=== PATIENT | male | born 1945 | race Caucasian/White ===

== ENCOUNTER → 2016-07-28 | Outpatient (REF) | payer MEDICARE, OTHER ==
[~2016-07-28] MED LIST: /PRAV20TA; /WARF5TA; ACET65TA; ACTO45TA6 PO; ALPH0.156; ASPI1TAB PO; BRIM1OPD; COZA100T; HYDR25TA6; KEFL500C; LATA5OPD OD; LISI-538 PO; METF500T PO; ONGLYZA; PERC5TAB8; PERC7.5T8; PRAV10TA PO; TRAVATAN; remicade IV
[2016-07-28 11:04] LABS: MEAN CORPUSCULAR HEMOGLOBIN 31.3 pg (27.0-33.0); MEAN CORPUSCULAR HGB CONC 33.5 g/dl (32.0-36.5); MEAN CORPUSCULAR VOLUME 93.6 fl (80.0-96.0); RED CELL DISTRIBUTION WIDTH 12.6 % (11.5-14.5); WHITE BLOOD COUNT 9.1 K/mm3 (4.0-10.0)
[2016-07-28 11:29] LABS: ALBUMIN 3.8 GM/DL (3.2-5.2); ALKALINE PHOSPHATASE 65 U/L (45-117); ALT/SGPT 24 U/L (12-78); ANION GAP 8 MEQ/L (8-16); AST/SGOT 16 U/L (15-37); BILIRUBIN,TOTAL 0.6 MG/DL (0.2-1.0); BLOOD UREA NITROGEN 17 MG/DL (7-18); CALCIUM LEVEL 9.1 MG/DL (8.8-10.2); CARBON DIOXIDE LEVEL 29 MEQ/L (21-32); CHLORIDE LEVEL 100 MEQ/L (98-107); CHOLESTEROL LEVEL 178 MG/DL (<200); CREATININE FOR GFR 1.09 MG/DL (0.70-1.30); GLOMERULAR FILTRATION RATE > 60.0 (>49); GLUCOSE, FASTING 133 MG/DL (80-110); POTASSIUM SERUM 4.3 MEQ/L (3.5-5.1); SODIUM LEVEL 137 MEQ/L (136-145); TOTAL PROTEIN 7.6 GM/DL (6.4-8.2); TRIGLYCERIDES LEVEL 99 MG/DL (<150)
== END ==
LOC: M SFHCLERA 09:22
PROVIDERS: ATTEND Family Medicine
DX: E11.9 Type 2 diabetes mellitus without complications (principal)

== ENCOUNTER → 2016-08-11 | Outpatient (REF) | payer MEDICARE, OTHER | LOC: M SFHCLERA 08:53 | PROVIDERS: ATTEND Family Medicine | DX: M10.9 Gout, unspecified (principal) | CPT/HCPCS: 84550; G0463 ==

== ENCOUNTER → 2016-10-16 | Outpatient (CLI) | payer MEDICARE, BC, OTHER ==
[~2016-10-16] MED LIST changes: +ACTO45TA12 PO; -ACTO45TA6 PO; -METF500T PO; +METF500T13 PO; -PRAV10TA PO; +PRAV10TA4 PO
--- NOTE | 2016-10-16 09:37 | REP ---
Clinical: Pain. Technique: AP, lateral, bilateral oblique views of the left foot. Findings: Hallux valgus deformity noted. Moderate degenerative changes are appreciated primarily involving the first toe including subchondral sclerosis, joint space narrowing, marginal spurring/osteophyte formation and periarticular erosions as well as overlying soft tissue swelling. Findings suggest osteoarthritic and inflammatory arthritides. No acute fracture dislocation. Lateral view demonstrates moderate calcaneal heal spur. Impression: Early advanced degenerative changes involving the first toe as described above. Moderate arthritic degenerative changes involving the second through fourth toes. Signed by Adnrew Parish MD 10/16/2016 09:30 A
[2016-10-16 11:48] LABS: BASO % 0.5 % (0.0-1.0); EOS # 0.1 K/mm3 (0.0-0.50); EOS % 2.1 % (0.0-3.0); LARGE UNSTAINED CELL # 0.2 K/mm3 (0.0-0.4); LARGE UNSTAINED CELL % 3.7 % (0.0-4.0); LYMPH # 2.3 K/mm3 (1.5-4.5); LYMPH % 37.5 % (24.0-44.0); MEAN CORPUSCULAR HEMOGLOBIN 31.8 pg (27.0-33.0); MEAN CORPUSCULAR HGB CONC 33.2 g/dl (32.0-36.5); MEAN CORPUSCULAR VOLUME 95.8 fl (80.0-96.0); MONO # 0.4 K/mm3 (0.0-0.8); MONO % 7.8 % (0.0-5.0); NEUTROPHILS # 2.7 K/mm3 (1.8-7.7); NEUTROPHILS % 48.4 % (36.0-66.0); PLATELET COUNT, AUTOMATED 154 k/mm3 (150-450); RED CELL DISTRIBUTION WIDTH 13.4 % (11.5-14.5); WHITE BLOOD COUNT 5.7 K/mm3 (4.0-10.0)
[2016-10-16 12:03] LABS: ALBUMIN 3.8 GM/DL (3.2-5.2); ALBUMIN/GLOBULIN RATIO 1.06 (1.00-1.93); ALKALINE PHOSPHATASE 57 U/L (45-117); ALT/SGPT 22 U/L (12-78); ANION GAP 6 MEQ/L (8-16); AST/SGOT 20 U/L (15-37); BILIRUBIN,TOTAL 0.7 MG/DL (0.2-1.0); BLOOD UREA NITROGEN 19 MG/DL (7-18); CARBON DIOXIDE LEVEL 30 MEQ/L (21-32); CHLORIDE LEVEL 99 MEQ/L (98-107); CREATININE FOR GFR 1.11 MG/DL (0.70-1.30); GLOMERULAR FILTRATION RATE > 60.0 (>49); GLUCOSE, FASTING 142 MG/DL (80-110); POTASSIUM SERUM 4.6 MEQ/L (3.5-5.1); SODIUM LEVEL 135 MEQ/L (136-145); TOTAL PROTEIN 7.4 GM/DL (6.4-8.2); URIC ACID 7.7 MG/DL (3.5-7.2)
== END ==
LOC: M LRY 08:34
PROVIDERS: ATTEND Internal Medicine Rheumatology
DX: L40.52 Psoriatic arthritis mutilans (principal); Z79.899 Other long term (current) drug therapy; M19.071 Primary osteoarthritis, right ankle and foot

== ENCOUNTER → 2017-01-22 | Outpatient (CLI) | payer MEDICARE, BC, OTHER ==
[2017-01-22 09:43] LABS: BASO % 0.4 % (0.0-1.0); EOS # 0.2 10^3/uL (0.0-0.50); EOS % 3.2 % (0.0-3.0); IMMATURE GRANULOCYTE % 0.4 % (0-0); LYMPH # 1.8 10^3/uL (1.5-4.5); LYMPH % 33.3 % (24.0-44.0); MEAN CORPUSCULAR HEMOGLOBIN 31.6 pg (27.0-33.0); MEAN CORPUSCULAR HGB CONC 33.2 g/dl (32.0-36.5); MEAN CORPUSCULAR VOLUME 95.4 fl (80.0-96.0); MONO # 0.6 10^3/uL (0.0-0.8); MONO % 10.9 % (0.0-5.0); NEUTROPHILS # 2.8 10^3/uL (1.8-7.7); NEUTROPHILS % 51.8 % (36.0-66.0); PLATELET COUNT, AUTOMATED 165 10^3/uL (150-450); RED CELL DISTRIBUTION WIDTH 13.3 % (11.5-14.5); WHITE BLOOD COUNT 5.3 10^3/uL (4.0-10.0)
[2017-01-22 09:46] LABS: ADD MANUAL DIFFER NO; DIFF SLIDE NUMBER 140
[2017-01-22 10:18] LABS: ALBUMIN 3.8 GM/DL (3.2-5.2); ALBUMIN/GLOBULIN RATIO 1.12 (1.00-1.93); ALKALINE PHOSPHATASE 45 U/L (45-117); ALT/SGPT 24 U/L (12-78); ANION GAP 5 MEQ/L (8-16); AST/SGOT 16 U/L (15-37); BILIRUBIN,TOTAL 0.7 MG/DL (0.2-1.0); BLOOD UREA NITROGEN 16 MG/DL (7-18); CALCIUM LEVEL 9.4 MG/DL (8.8-10.2); CARBON DIOXIDE LEVEL 32 MEQ/L (21-32); CHLORIDE LEVEL 99 MEQ/L (98-107); CREATININE FOR GFR 1.05 MG/DL (0.70-1.30); GLOMERULAR FILTRATION RATE > 60.0 (>49); GLUCOSE, FASTING 133 MG/DL (80-110); POTASSIUM SERUM 4.3 MEQ/L (3.5-5.1); SODIUM LEVEL 136 MEQ/L (136-145); TOTAL PROTEIN 7.2 GM/DL (6.4-8.2); URIC ACID 7.2 MG/DL (3.5-7.2)
== END ==
LOC: M LAB 09:07
PROVIDERS: ATTEND Internal Medicine Rheumatology
DX: L40.52 Psoriatic arthritis mutilans (principal); D63.8 Anemia in other chronic diseases classified elsewhere; M10.09 Idiopathic gout, multiple sites; Z79.899 Other long term (current) drug therapy

== ENCOUNTER 2017-05-16 08:51 | Outpatient (CLI) | payer MEDICARE, BC, OTHER ==
[2017-05-16] MEDS ORDERED: E-Z-GAS II EFFERVESCENT PACKET (SODIUM BICARB./CITRIC ACID/SIMETHICONE) As Ordered (08:54)
[2017-05-16] MEDS ORDERED: E-Z-PAQUE 96% w/w SUSP 176GM BTL As Ordered (08:54)
[2017-05-16] MEDS ORDERED: E-Z-HD 98% w/w 340GM SUSP BTL As Ordered (08:54)
[2017-05-23] MEDS ORDERED: E-Z-HD 98% w/w 340GM SUSP BTL As Ordered (08:32)
[2017-05-23] MEDS ORDERED: E-Z-PAQUE 96% w/w SUSP 176GM BTL As Ordered (08:32)
[2017-05-23] MEDS ORDERED: E-Z-GAS II EFFERVESCENT PACKET (SODIUM BICARB./CITRIC ACID/SIMETHICONE) As Ordered (08:32)
== END 2017-05-23 ==
LOC: M RAD 08:51
DX: K22.2 Esophageal obstruction (principal)
CPT/HCPCS: 74241

== ENCOUNTER → 2017-05-31 | Outpatient (REF) | payer MEDICARE, OTHER ==
[2017-05-31 12:03] LABS: ESTIMATED AVERAGE GLUCOSE 137 MG/DL (60-110); HEMOGLOBIN A1c 6.4 %
[2017-06-03 00:06] LABS: QUANTIFERON GOLD TB Negative (Negative); TB Test (QFT) Antigen 0.02 IU/mL (.); TB Test (QFT) Mitogen 6.96 IU/mL (.); TB Test (QFT) Nil 0.02 IU/mL (.)
== END ==
LOC: M SFHCLERA 08:06
DX: L40.50 Arthropathic psoriasis, unspecified (principal); E11.9 Type 2 diabetes mellitus without complications
CPT/HCPCS: 83036

== ENCOUNTER 2017-06-28 09:25 | Day surgery (SDC) | payer MEDICARE, BC, OTHER ==
[2017-06-28] MEDS: NS 1,000 ML IV (09:58)
[2017-06-28] MEDS ORDERED: LIDOCAINE 2% INJ 100 MG/5 ML SDV (FOR ANES.) As Ordered (10:30)
[2017-06-28] MEDS ORDERED: PROPOFOL 200 MG/20 ML VIAL As Ordered ×2 (10:30)
== END 2017-06-28 10:57 | disposition home or self-care (01) ==
LOC: M OPP 09:25
DX: R13.10 Dysphagia, unspecified (principal); K20.9 Esophagitis, unspecified; K22.2 Esophageal obstruction; I10 Essential (primary) hypertension; E78.5 Hyperlipidemia, unspecified; E11.9 Type 2 diabetes mellitus without complications; K21.9 Gastro-esophageal reflux disease without esophagitis; R12 Heartburn; L40.50 Arthropathic psoriasis, unspecified; Z96.643 Presence of artificial hip joint, bilateral; Z79.82 Long term (current) use of aspirin; Z79.899 Other long term (current) drug therapy; Z79.84 Long term (current) use of oral hypoglycemic drugs
CPT/HCPCS: 43202

== ENCOUNTER → 2017-08-03 | Outpatient (CLI) | payer MEDICARE, BC, OTHER ==
[2017-08-03 13:09] LABS: BLOOD UREA NITROGEN 13 MG/DL (7-18)
[2017-08-03 13:09] LABS: CREATININE FOR GFR 1.05 MG/DL (0.70-1.30); GLOMERULAR FILTRATION RATE > 60.0 (>42)
== END ==
LOC: M LAB 12:16
DX: C15.9 Malignant neoplasm of esophagus, unspecified (principal); I50.9 Heart failure, unspecified; R63.4 Abnormal weight loss
CPT/HCPCS: 82565

== ENCOUNTER → 2017-08-06 | Outpatient (CLI) | payer MEDICARE, BC, OTHER ==
[~2017-08-06] MED LIST changes: -/PRAV20TA; -/WARF5TA; -ACET65TA; -ACTO45TA12 PO; -ALPH0.156; -ASPI1TAB PO; -BRIM1OPD; -COZA100T; -HYDR25TA6; +ISOVUE-370 76% 100ML VIAL (Q9967) As Ordered; -KEFL500C; -LATA5OPD OD; -LISI-538 PO; -METF500T13 PO; -ONGLYZA; -PERC5TAB8; -PERC7.5T8; -PRAV10TA4 PO; -TRAVATAN; -remicade IV
== END ==
LOC: M RAD 06:52
DX: C15.9 Malignant neoplasm of esophagus, unspecified (principal); R63.4 Abnormal weight loss; K57.90 Diverticulosis of intestine, part unspecified, without perforation or abscess without bleeding; K76.89 Other specified diseases of liver; K80.20 Calculus of gallbladder without cholecystitis without obstruction
CPT/HCPCS: Q9967

== ENCOUNTER → 2017-11-13 | Outpatient (CLI) | payer MEDICARE, BC, OTHER | LOC: M LRY 09:20 | DX: Z01.818 Encounter for other preprocedural examination (principal); C15.9 Malignant neoplasm of esophagus, unspecified; K76.9 Liver disease, unspecified | CPT/HCPCS: 71046; A9576 ==

== ENCOUNTER → 2017-11-13 | Outpatient (CLI) | payer MEDICARE, BC, OTHER ==
[~2017-11-13] MED LIST changes: -ISOVUE-370 76% 100ML VIAL (Q9967) As Ordered; +PROHANCE 279.3MG/ML 15ML VIAL (A9576) As Ordered; +PROHANCE 279.3MG/ML 5ML VIAL (A9576) As Ordered
== END ==
LOC: M RAD 17:06
DX: K76.9 Liver disease, unspecified (principal)
CPT/HCPCS: A9576

== ENCOUNTER → 2018-01-10 | Outpatient (REF) | payer MEDICARE, OTHER ==
[2018-01-10 11:48] LABS: BASO % 0.4 % (0.0-1.0); EOS # 0.2 10^3/uL (0.0-0.50); EOS % 4.1 % (0.0-3.0); IMMATURE GRANULOCYTE % 0.2 % (0-3.0); LYMPH % 18.7 % (24.0-44.0); MEAN CORPUSCULAR HEMOGLOBIN 30.7 pg (27.0-33.0); MEAN CORPUSCULAR HGB CONC 30.6 g/dl (32.0-36.5); MEAN CORPUSCULAR VOLUME 100.6 fl (80.0-96.0); MONO # 0.6 10^3/uL (0.0-0.8); NEUTROPHILS # 3.3 10^3/uL (1.8-7.7); NEUTROPHILS % 64.6 % (36.0-66.0); PLATELET COUNT, AUTOMATED 282 10^3/uL (150-450); RED BLOOD COUNT 3.58 10^6/uL (4.30-6.10); RED CELL DISTRIBUTION WIDTH 15.1 % (11.5-14.5); WHITE BLOOD COUNT 5.1 10^3/uL (4.0-10.0)
[2018-01-10 12:10] LABS: ANION GAP 6 MEQ/L (8-16); BLOOD UREA NITROGEN 17 MG/DL (7-18); CALCIUM LEVEL 8.6 MG/DL (8.8-10.2); CARBON DIOXIDE LEVEL 29 MEQ/L (21-32); CHLORIDE LEVEL 103 MEQ/L (98-107); CREATININE FOR GFR 0.97 MG/DL (0.70-1.30); GLOMERULAR FILTRATION RATE > 60.0 (>42); GLUCOSE, FASTING 106 MG/DL (70-100); POTASSIUM SERUM 4.3 MEQ/L (3.5-5.1); SODIUM LEVEL 138 MEQ/L (136-145)
== END ==
LOC: M SFHCLERA 08:53
DX: C15.9 Malignant neoplasm of esophagus, unspecified (principal); I10 Essential (primary) hypertension
CPT/HCPCS: 80048

== ENCOUNTER → 2018-02-11 | Outpatient (REF) | payer MEDICARE, OTHER ==
[2018-02-11 14:11] LABS: MALB URINE SIEMENS 5.9 MG/L
[2018-02-11 14:13] LABS: MAU/CREAT RATIO 12.9 MCG/MG (0.0-30.0)
[2018-02-11 14:20] LABS: ESTIMATED AVERAGE GLUCOSE 128 MG/DL (60-110); HEMOGLOBIN A1c 6.1 %
== END ==
LOC: M SFHCLERA 10:58
DX: E11.9 Type 2 diabetes mellitus without complications (principal)
CPT/HCPCS: 83036

== ENCOUNTER → 2018-07-25 | Outpatient (REF) | payer MEDICARE, OTHER ==
[~2018-07-25] MED LIST changes: +ACET65TA; +ACTO45TA12 PO; +ALPH0.156; +ASPI81TA26 PO; +BRIM1OPD OU; +COLC1CAP PO; +COUM1TAB17; +COZA100T; +HYDR25TA6; +KEFL500C; +LATA0.0013 OU; +LISI-538 PO; +METF500T13 PO; +MULT1TAB10 PO; +OMEP40CA2 PO; +ONGLYZA; +PERC5TAB8; +PERC7.5T8; +PRAV10TA4 PO; +PRAV1TAB39; -PROHANCE 279.3MG/ML 15ML VIAL (A9576) As Ordered; -PROHANCE 279.3MG/ML 5ML VIAL (A9576) As Ordered; +RANI300C PO; +TRAVATAN; +remicade IV
[2018-07-25 11:51] LABS: CHOLESTEROL RISK RATIO 1.887 (<5)
[2018-07-25 12:24] LABS: HEMOGLOBIN A1c 5.8 %
== END ==
LOC: M SFHCLERA 09:04
PROVIDERS: ATTEND Family Medicine
DX: E11.9 Type 2 diabetes mellitus without complications (principal); E78.2 Mixed hyperlipidemia
CPT/HCPCS: 80061; 83036; G0463

== ENCOUNTER → 2018-11-19 | Outpatient (REF) | payer MEDICARE, OTHER ==
[2018-11-19 13:08] LABS: BLOOD UREA NITROGEN 17 MG/DL (7-18); CALCIUM LEVEL 9.4 MG/DL (8.8-10.2); CARBON DIOXIDE LEVEL 33 MEQ/L (21-32); CHLORIDE LEVEL 101 MEQ/L (98-107); CREATININE FOR GFR 0.99 MG/DL (0.70-1.30); GLOMERULAR FILTRATION RATE > 60.0 (>42); GLUCOSE, FASTING 104 MG/DL (70-100); POTASSIUM SERUM 3.9 MEQ/L (3.5-5.1); SODIUM LEVEL 140 MEQ/L (136-145)
== END ==
LOC: M SFHCLERA 08:08
PROVIDERS: ATTEND Family Medicine
DX: I10 Essential (primary) hypertension (principal)

== ENCOUNTER → 2018-12-02 | Outpatient (REF) | payer MEDICARE, OTHER ==
[2018-12-02 12:13] LABS: BLOOD UREA NITROGEN 14 MG/DL (7-18); CALCIUM LEVEL 8.7 MG/DL (8.8-10.2); CARBON DIOXIDE LEVEL 28 MEQ/L (21-32); CHLORIDE LEVEL 105 MEQ/L (98-107); CREATININE FOR GFR 0.95 MG/DL (0.70-1.30); GLOMERULAR FILTRATION RATE > 60.0 (>42); GLUCOSE, FASTING 94 MG/DL (70-100); POTASSIUM SERUM 4.5 MEQ/L (3.5-5.1); SODIUM LEVEL 140 MEQ/L (136-145)
== END ==
LOC: M SFHCLERA 09:10
PROVIDERS: ATTEND Family Medicine
DX: I10 Essential (primary) hypertension (principal)
CPT/HCPCS: 80048; G0463

== ENCOUNTER → 2018-12-31 | Outpatient (CLI) | payer MEDICARE, BC, OTHER ==
--- NOTE | 2018-12-31 09:53 | REP ---
Lumbar spine five views: There are no comparisons except for an abdominal and pelvis CT dated 08/06/2017. There is mild demineralization. There is biconcave compression deformity of the T11, L1 and L2 vertebral bodies as a change from the comparison CT. This may be from insufficiency. There is disc space narrowing and bridging osteophytic formation at multiple levels from T12-L2 compatible with advanced degenerative disc disease throughout the lumbar spine. L5 S1 disc is unremarkable. There is bilateral facet osteoarthritis. The pedicles are unremarkable. There is no spondylolysis or spondylolisthesis. Sacroiliac articulations are unremarkable. There are bilateral total hip arthroplasties. Impression: Advanced multilevel degenerative disc disease. Facet osteoarthritis. Biconcave compression deformities of the T12, L1-L2. Electronically Signed by Alan Anthony MD 12/31/2018 09:45 A
== END ==
LOC: M LRY 08:31
PROVIDERS: ATTEND Family Medicine
DX: M51.36 Other intervertebral disc degeneration, lumbar region (principal); M54.5 Low back pain
CPT/HCPCS: 72110; G0463

== ENCOUNTER → 2019-01-02 | Outpatient (CLI) | payer MEDICARE, BC, OTHER ==
[~2019-01-02] MED LIST changes: +PROHANCE 279.3MG/ML 15ML VIAL (A9576) As Ordered ONE; +PROHANCE 279.3MG/ML 5ML VIAL (A9576) As Ordered ONE
--- NOTE | 2019-01-02 11:16 | REPVR ---
PROCEDURE INFORMATION: Exam: MR Lumbar Spine Without and With Contrast. Exam date and time: 01/02/2019 9:57 AM Clinical history: 73 years old, male; Pain and condition or disease; Other: Esophogeal with mets; Low back pain; Additional info: Esophogeal CA w/ mets w/ persistant lbp TECHNIQUE: Imaging protocol: Multiplanar magnetic resonance images of the lumbar spine without and with intravenous contrast. Contrast material: PROHANCE; Contrast volume: 16 ml; Contrast route: IV; COMPARISON: CR SPINE LS COMPLETE 12/31/2018 8:38 AM FINDINGS: Vertebrae: There is an enhancing low T1 signal tissue in the posterior aspects of T12 and L1 suspicious for metastatic disease not included on the axial images. There is increased T2 signal at the left margin of L2 and bilateral T2 signal at L3 and L4 with possible postcontrast enhancement suspected although these are not fat suppressed images and the presence of paravertebral fat on the precontrast images may explain these findings. Spinal cord: There is soft tissue encroachment on the conus with postcontrast enhancement suspicious for epidural tumor with extension into the foramina of the lower thoracic spine and L1-L2 and MRI of the thoracic spine and thoracolumbar junction is recommended. L1-L2: No significant disc disease. No significant spinal stenosis. L2-L3: No significant disc disease. No significant spinal stenosis. L3-L4: The L3-L4 level demonstrates a moderate diffuse posterior disc herniation. There is mild short pedicle stenosis and moderate facet arthropathy with moderate right and mild left subarticular stenosis and mild bilateral foraminal stenosis. L4-L5: The L4-L5 level demonstrates a mild diffuse posterior disc herniation. There is moderate facet arthropathy and mild short pedicle stenosis with mild bilateral subarticular stenosis. There is mild bilateral foraminal stenosis. L5-S1: No significant disc disease. No significant spinal stenosis. Soft tissues: Unremarkable. IMPRESSION: 1. There is an enhancing low T1 signal tissue in the posterior aspects of T12 and L1 suspicious for metastatic disease not included on the axial images. 2. There is soft tissue encroachment on the conus with postcontrast enhancement suspicious for epidural tumor with extension into the foramina of the lower thoracic spine and L1-L2 and MRI of the thoracic spine and thoracolumbar junction is recommended. 3. There is increased T2 signal at the left margin of L2 and bilateral T2 signal at L3 and L4 with possible postcontrast enhancement suspected although these are not fat suppressed images and the presence of paravertebral fat on the precontrast images may explain these findings. 4. The L3-L4 level demonstrates a moderate diffuse posterior disc herniation. There is mild short pedicle stenosis and moderate facet arthropathy with moderate right and mild left subarticular stenosis and mild bilateral foraminal stenosis. 5. The L4-L5 level demonstrates a mild diffuse posterior disc herniation. There is moderate facet arthropathy and mild short pedicle stenosis with mild bilateral subarticular stenosis. There is mild bilateral foraminal stenosis. RECOMMENDATION: MRI of the thoracic spine with dedicated imaging of the thoracolumbar junction is recommended including fat-suppressed postcontrast imaging. Electronically signed by: Peter Byers On 01/02/2019 11:16:32 AM
== END ==
LOC: M RAD 08:41
PROVIDERS: ATTEND Internal Medicine Hematology & Oncology
DX: C15.5 Malignant neoplasm of lower third of esophagus (principal); C79.89 Secondary malignant neoplasm of other specified sites; M54.5 Low back pain
CPT/HCPCS: 72158; A9576

== ENCOUNTER → 2019-02-13 | Outpatient (REF) | payer MEDICARE, OTHER ==
[~2019-02-13] MED LIST changes: +ALDA25TA2 PO; +CALC600T60 PO; +CEFD300CAP PO; +DOCU240C9 PO; +FURO20TA2 PO; +HYDR-3713 PO; +HYDR-4571 PO; +MIRA3350 PO; +MORP-69 PO; +MULTCAP PO; -OMEP40CA2 PO; +OMEP40CA97 PO; +OXYC-517 PO; +PANT40TA3 PO; +POTA1TAB23 PO; -PROHANCE 279.3MG/ML 15ML VIAL (A9576) As Ordered ONE; -PROHANCE 279.3MG/ML 5ML VIAL (A9576) As Ordered ONE; +SULF1TAB93 PO; +XALA0.007 OU
[2019-02-13 12:24] LABS: BASO % 0.2 % (0.0-1.0); EOS # 0.1 10^3/uL (0.0-0.5); EOS % 0.6 % (0.0-3.0); HEMOGLOBIN 14.3 g/dl (13.5-17.5); LYMPH # 0.3 10^3/uL (1.5-5.0); LYMPH % 2.8 % (24.0-44.0); MEAN CORPUSCULAR HEMOGLOBIN 33.7 pg (27.0-33.0); MEAN CORPUSCULAR HGB CONC 31.8 g/dl (32.0-36.5); MEAN CORPUSCULAR VOLUME 106.1 fl (80.0-96.0); MONO # 1.5 10^3/uL (0.0-0.8); NEUTROPHILS # 10.4 10^3/uL (1.5-8.5); NEUTROPHILS % 83.8 % (36.0-66.0); PLATELET COUNT, AUTOMATED 241 10^3/uL (150-450); RED BLOOD COUNT 4.24 10^6/uL (4.30-6.10); WHITE BLOOD COUNT 12.4 10^3/uL (4.0-10.0)
[2019-02-13 12:28] LABS: ALBUMIN 2.7 GM/DL (3.2-5.2); ALT/SGPT 32 U/L (12-78); BILIRUBIN,TOTAL 0.7 MG/DL (0.2-1.0); BLOOD UREA NITROGEN 18 MG/DL (7-18); CALCIUM LEVEL 9.2 MG/DL (8.8-10.2); CARBON DIOXIDE LEVEL 28 MEQ/L (21-32); CHLORIDE LEVEL 98 MEQ/L (98-107); CREATININE FOR GFR 1.06 MG/DL (0.70-1.30); GLOMERULAR FILTRATION RATE > 60.0 (>42); GLUCOSE, FASTING 120 MG/DL (70-100); POTASSIUM SERUM 4.6 MEQ/L (3.5-5.1); SODIUM LEVEL 135 MEQ/L (136-145)
== END ==
LOC: M SFHCLERA 08:31
PROVIDERS: ATTEND Family Medicine
DX: R60.0 Localized edema (principal)
CPT/HCPCS: 80053; 85025; 90682; G0008

== ENCOUNTER 2019-02-17 14:49 | Inpatient (IN) | payer MEDICARE, OTHER, BC ==
[~2019-02-17] VITALS: Ht 175.3 cm; Wt 72.7 kg
[~2019-02-17 14:49] MED LIST changes: -ALDA25TA2 PO; -CALC600T60 PO; -CEFD300CAP PO; -DOCU240C9 PO; -FURO20TA2 PO; -HYDR-3713 PO; -HYDR-4571 PO; -MIRA3350 PO; -MORP-69 PO; -MULTCAP PO; -OXYC-517 PO; -PANT40TA3 PO; -POTA1TAB23 PO; -SULF1TAB93 PO; -XALA0.007 OU
[2019-02-17] MEDS ORDERED: METF500T13 PO (15:24)
[2019-02-17] MEDS ORDERED: MULTCAP PO (15:24)
[2019-02-17] MEDS ORDERED: MORP-69 PO (15:24)
[2019-02-17] MEDS ORDERED: FURO20TA2 PO (15:24)
[2019-02-17] MEDS ORDERED: BRIM1OPD OP (15:24)
[2019-02-17] MEDS ORDERED: PANT40TA3 PO (15:24)
[2019-02-17] MEDS ORDERED: CALC600T60 PO (15:24)
[2019-02-17] MEDS ORDERED: OXYC-517 PO (15:24)
[2019-02-17] MEDS ORDERED: MIRA3350 PO (15:24)
[2019-02-17] MEDS ORDERED: POTA1TAB23 PO (15:24)
[2019-02-17] MEDS ORDERED: XALA0.007 OP (15:24)
[2019-02-17] MEDS ORDERED: DOCU240C9 PO (15:24)
[2019-02-17 16:00] LABS: BASO % 0.2 % (0.0-1.0); EOS # 0.1 10^3/uL (0.0-0.5); EOS % 0.5 % (0.0-3.0); HEMATOCRIT 46.8 % (42.0-52.0); HEMOGLOBIN 15.3 g/dl (13.5-17.5); LYMPH # 0.3 10^3/uL (1.5-5.0); MEAN CORPUSCULAR HGB CONC 32.7 g/dl (32.0-36.5); MONO # 1.3 10^3/uL (0.0-0.8); MONO % 9.9 % (0.0-5.0); NEUTROPHILS # 11.4 10^3/uL (1.5-8.5); NEUTROPHILS % 86.9 % (36.0-66.0); PLATELET COUNT, AUTOMATED 220 10^3/uL (150-450); WHITE BLOOD COUNT 13.1 10^3/uL (4.0-10.0)
[2019-02-17 16:11] LABS: INR 1.2; PROTHROMBIN TIME 14.9 SECONDS (11.8-14.0)
[2019-02-17 16:41] LABS: ALBUMIN 2.4 GM/DL (3.2-5.2); ALT/SGPT 29 U/L (12-78); BILIRUBIN,DIRECT 0.1 MG/DL (0.0-0.2); BILIRUBIN,TOTAL 0.7 MG/DL (0.2-1.0); BLOOD UREA NITROGEN 24 MG/DL (7-18); CALCIUM LEVEL 8.6 MG/DL (8.8-10.2); CARBON DIOXIDE LEVEL 26 MEQ/L (21-32); CHLORIDE LEVEL 99 MEQ/L (98-107); CREATININE FOR GFR 1.21 MG/DL (0.70-1.30); GLOMERULAR FILTRATION RATE > 60.0 (>42); GLUCOSE, FASTING 160 MG/DL (70-100); MAGNESIUM LEVEL 2.1 MG/DL (1.8-2.4); POTASSIUM SERUM 5.8 MEQ/L (3.5-5.1); SODIUM LEVEL 134 MEQ/L (136-145); TOTAL PROTEIN 6.8 GM/DL (6.4-8.2)
--- NOTE | 2019-02-17 17:19 | REP ---
Single view chest: 02/17/2019. Indication: Dyspnea. Comparison: 11/13/2017. Findings: Chronic interstitial fibrotic changes and right-sided Port-A-Cath are redemonstrated. No air space consolidation, pleural effusion or pneumothorax is present. Cardiac silhouette is not enlarged. Impression: Essentially stable chronic changes. No acute air space consolidation. Electronically Signed by Luis Elmore DO 02/17/2019 05:10 P
[2019-02-17] MEDS: HumaLOG INSULIN (NovoLOG) PER UNIT SC SCH ×2 (17:30→21:00)
[2019-02-17] MEDS ORDERED: GLUCAGON FOR INJ 1 MG VIAL (J1610) SC PRN (17:45)
[2019-02-17] MEDS ORDERED: GLUCOSE 4 GM CHEW TABLET PO PRN (17:45)
[2019-02-17] MEDS ORDERED: HEPARIN SOD (PORCINE) 5000 UNITS/ML VIAL SC SCH (17:45)
[2019-02-17] MEDS ORDERED: DEXTROSE 50% 50 ML SYRINGE IV PRN (17:45)
[2019-02-17] MEDS ORDERED: SOD POLYSTYRENE SULFONATE SUSP 15 GM/60 ML UD PO ONE (18:00)
[2019-02-17] MEDS ORDERED: MORPHINE 15 MG SA TAB PO PRN (18:15)
--- NOTE | 2019-02-17 18:27 | HPEPDOC ---
[facility] Medical History & Physical Date of Admission Feb 17, 2019 Date of Service: Feb 17, 2019 Primary Care Physician: KHALIF FOX MD Attending Physician: AJAY WOLFF MD History and Physical CHIEF COMPLAINT: Abdominal Pain, and abdominal swelling HISTORY OF PRESENT ILLNESS: Patient is a 73-year-old man with a past medical history significant for adenocarcinoma of the GE junction, status post esophagectomy, that was treated with radiation and chemotherapy in November 2017. History reported that he recently failed chemotherapy, due to a new lesion discovered on T12 that is currently undergoing radiation therapy. Patient reports that he previously had shortness of breath, and abdominal pain, which required paracentesis on 02/13/2019. Approximately 3 L was removed from the paracentesis at [facility]. Patient was supposed to follow-up. On this Sunday for further paracentesis. He reports that Sunday of this week he developed abdominal swelling, lower extremity swelling, with decreased appetite, no dysphagia, he also has shortness of breath with activity and at rest. He denied chest pain. Denied dysphagia. He also reported weight loss. He presented to the ED due to these complaints. Interventional radiology was contacted due to patient's need for paracentesis, patient will be scheduled for paracentesis in the a.m. tomorrow. He will be monitored overnight. PAST MEDICAL HISTORY: Type 2 diabetes, hypertension, glaucoma, psoriatic arthritis, basal cell carcinoma, cataracts, hyperlipidemia, prior history of C. difficile, esophageal cancer status post esophagectomy with radiation, chemotherapy, T12 lesion. PAST SURGICAL HISTORY: Bilateral hip replaced, basal cell resection, colonoscopy, right eye cataract, endoscopy, esophagectomy, gastroduodenoscopy, SOCIAL HISTORY: Lives with his , quit smoking in 1988, enjoys occasional alcoholic beverage. FAMILY HISTORY: Father is alive with diagnosis of diabetes, hypertension, and on specified a rterial occlusion. Mother is . Brother and sister are healthy. Denies any family history of pancreatic cancer. ALLERGIES: Please see below. ROS CONSTITUTIONAL: No fevers, denies chills, admits to weight loss, denies lethargy HEENT: No rhinorrhea, no itchy eyes, no congesion, CARDIOVASCULAR: No murmurs no palpitations and arrhythmias RESPIRATORY: Admits to shortness of breath, no cough, GASTROINTESTINAL: Admits to nausea, no difficulty swallowing, no pain with eating, no dysphagia HEMATOLOGICAL: No bleeding GENITOURINARY:No Issues HEMATOLOGIC/LYMPHATIC: Admits to abdominal swelling, as well as lower shortness PE VITALS: See Below GENERAL APPEARANCE: Elderly pleasant gentleman sitting comfortably, rapidly SKIN: Warm, well perfused. LUNGS: Clear to auscultation bilaterally., No crackles, no wheezing HEART: Normal S1, S2. No murmurs, no rubs, no gallops ABDOMEN: Soft, distended, fluid wave is present, bowel sounds present, no tenderness, no rigidity, no rebound TRUNK/SPINE:Straight. EXTREMITIES: Bilateral lower extremity edema, 1+ pitting, pulses intact HOME MEDICATIONS: Please see below. LABORATORY DATA: See below. IMAGING: none MICROBIOLOGY: Please see below. ASSESSMENT/ PLAN: Patient is a 73-year-old man with a past medical history significant for adenocarcinoma of the GE junction, status post esophagectomy, that was treated with radiation and chemotherapy in November 2017. History reported that he recently failed chemotherapy, due to a new lesion discovered on T12 that is currently undergoing radiation therapy. Presented with abdominal pain, shortness of breath secondary to abdominal ascites. Patient will be scheduled for paracentesis tomorrow morning. 1. Abdominal ascites secondary to esophageal adenocarcinoma -Will obtain cytology of paracentesis -Ordered IV albumin to improve symptoms & intravascular volume -Pain control with Morphine 2. Diabetes -Currently diet controlled, will use sliding scale. 3. Hyperlipidemia -Continue current medication 4.Glaucoma, -Use home medications 5. DVT -Heparin Attending addendum: I personally saw and examined the patient. I discussed the care and management of this patient with Resident in detail and agree with the plan above. Additional information below: - Presents w/ worsening ascites, s/p Paracentesis on 02/13 (first ever, removed ~3L), schedule for repeat paracentesis in the morning by IR, tachycardic/low normal BP, IV albumin to supplement intravascular volume and help w/ symptoms. Unknown etiology of paracentesis, probably malignant, will order cytology of ascitic fluid. Vital Signs Vital Signs Date Time Temp Pulse Resp B/P (MAP) Pulse Ox O2 Delivery O2 Flow Rate FiO2 02/17/19 15:24 02/17/19 14:50 97.7 119 20 92 Room Air Laboratory Data Labs 24H Laboratory Tests 2 02/17/19 15:49: Immature Granulocyte % (Auto) 0.5, Neutrophils (%) (Auto) 86.9H, Lymphocytes (%) (Auto) 2.0L, Monocytes (%) (Auto) 9.9H, Eosinophils (%) (Auto) 0.5, Basophils (%) (Auto) 0.2, Neutrophils # (Auto) 11.4H, Lymphocytes # (Auto) 0.3L, Monocytes # (Auto) 1.3H, Eosinophils # (Auto) 0.1, Basophils # (Auto) 0.0, Nucleated Red Blood Cells % (auto) 0.0, Prothrombin Time 14.9H, Prothromb Time International Ratio 1.20, Anion Gap 9, Glomerular Filtration Rate > 60.0, Calcium Level 8.6L, Magnesium Level 2.1, Total Bilirubin 0.7, Direct Bilirubin 0.1, Aspartate Amino Transf (AST/SGOT) 45H, Alanine Aminotransferase (ALT/SGPT) 29, Alkaline Phosphatase 163H, Total Protein 6.8, Albumin 2.4L, Albumin/Globulin Ratio 0.55L CBC/BMP Laboratory Tests 02/17/19 15:49 Home Medications Scheduled Brimonidine Tartrate (Alphagan P) 0.1% 5ML Drops, 1 DROP OP BID Calcium Carbonate (Calcium) 600 Mg Tablet, 600 MG PO BID Furosemide (Furosemide) 20 Mg Tablet, 20 MG PO DAILY Latanoprost (Xalatan) 0.005% 2.5ML Drops, 1 DROP OP QHS Multivitamin (Multivitamins) 1 Each Capsule, 1 CAP PO DAILY Pantoprazole Sodium (Pantoprazole Sodium) 40 Mg Tablet.dr, 40 MG PO DAILY Potassium Chloride (Potassium Chloride) 10 Meq Tablet.er, 10 MEQ PO DAILY Scheduled PRN Docusate Calcium (Docusate Calcium) 240 Mg Capsule, 240 MG PO BID PRN for CONSTIPATION Morphine Sulfate (Morphine Sulfate ER) 15 Mg Tablet.er, 15 MG PO BIDP PRN for PAIN Polyethylene Glycol 3350 (Miralax) 119 Gm Powder, 17 GM PO DAILY PRN for CONSTIPATION dilute in 8 ounces of water or juice Allergies Coded Allergies: No Known Allergies (Unverified , 02/17/19) GME ATTESTATION GME ATTESTATION My faculty preceptor for this patient encounter was physically present during the encounter and was fully available. All aspects of the patient interview, examination, medical decision making process, and medical care plan development were reviewed and approved by the faculty preceptor. The faculty preceptor is aware and concurs with the plan as stated in the body of this note and will attest to such by his/her cosignature. ANASTASIYA ARGUELLES DO Feb 17, 2019 18:27 AJAY WOLFF MD Feb 18, 2019 07:39
[2019-02-17] MEDS: HEPARIN SOD (PORCINE) 5000 UNITS/ML VIAL SC SCH (21:30)
[2019-02-17 21:31] VITALS: BP 109/76
[2019-02-17 23:07] VITALS: BP 108/76
[2019-02-17 23:10] VITALS: BP 108/76
[2019-02-17] MEDS: BRIMONIDINE 0.1% OPHTH SOLN 5 ML OU SCH (23:20)
[2019-02-17] MEDS: LATANOPROST 0.005% OPHTH SOLN 2.5 ML OU SCH (23:20)
[2019-02-17 23:50] VITALS: BP 105/73
[2019-02-18] VITALS (9 sets, daily range): BP systolic 97–107; BP diastolic 65–76
--- NOTE | 2019-02-18 06:20 | ECGEPIP ---
[facility] - ED Test Date: 2019-02-17 Pat Name: PHILIPPE CURIEL Department: Room: - Gender: Male Rn Field: LILY : 1945 Requested By: Kaushik Moran Order Number: [id number] Reading MD: Kaushik Tang Measurements Intervals [place] Rate: 104 P: NM: 0 QRS: 71 QRSD: 82 T: 215 QT: 317 QTc: 419 Interpretive Statements ATRIAL FLUTTER/TACHYCARDIA WITH RAPID VENTRICULAR RESPONSE NONSPECIFIC ST & T-WAVE ABNORMALITY NO PRIORS FOR COMPARISON Electronically Signed on 02-18-2019 6:20:29 EST by Kaushik Tang
[2019-02-18 07:05] LABS: HEMATOCRIT 42.7 % (42.0-52.0); HEMOGLOBIN 13.9 g/dl (13.5-17.5); MEAN CORPUSCULAR HEMOGLOBIN 33.3 pg (27.0-33.0); MEAN CORPUSCULAR HGB CONC 32.6 g/dl (32.0-36.5); MEAN CORPUSCULAR VOLUME 102.2 fl (80.0-96.0); PLATELET COUNT, AUTOMATED 209 10^3/uL (150-450); RED BLOOD COUNT 4.18 10^6/uL (4.30-6.10); WHITE BLOOD COUNT 11.8 10^3/uL (4.0-10.0)
[2019-02-18 07:16] LABS: INR 1.23; PROTHROMBIN TIME 15.3 SECONDS (11.8-14.0)
[2019-02-18 07:35] LABS: ALBUMIN 2.8 GM/DL (3.2-5.2); ALT/SGPT 25 U/L (12-78); BILIRUBIN,TOTAL 0.7 MG/DL (0.2-1.0); BLOOD UREA NITROGEN 30 MG/DL (7-18); CALCIUM LEVEL 8.5 MG/DL (8.8-10.2); CARBON DIOXIDE LEVEL 27 MEQ/L (21-32); CHLORIDE LEVEL 99 MEQ/L (98-107); CREATININE FOR GFR 1.23 MG/DL (0.70-1.30); GLOMERULAR FILTRATION RATE > 60.0 (>42); GLUCOSE, FASTING 120 MG/DL (70-100); MAGNESIUM LEVEL 2.2 MG/DL (1.8-2.4); POTASSIUM SERUM 4.6 MEQ/L (3.5-5.1); SODIUM LEVEL 134 MEQ/L (136-145); TOTAL PROTEIN 6.8 GM/DL (6.4-8.2)
[2019-02-18] MEDS: PANTOPRAZOLE 40MG TAB (PROTONIX) PO SCH (08:17)
[2019-02-18] MEDS: HumaLOG INSULIN (NovoLOG) PER UNIT SC SCH ×4 (08:18→22:17)
[2019-02-18] MEDS: BRIMONIDINE 0.1% OPHTH SOLN 5 ML OU SCH ×2 (08:18→21:35)
[2019-02-18] MEDS ORDERED: MIRALAX *UNIT DOSE* 17GM PACKET PO PRN (09:00)
--- NOTE | 2019-02-18 10:26 | IPNPDOC ---
Text Note Date of Service The patient was seen on 02/18/19. NOTE SUBJECTIVE: Patient was examined on [place] is morning. He was accompanied by his . He complained of abdominal pain, with shortness of breath with exertion. He had decent sleep overnight. He was afebrile. He had no cough, chest pain. OBJECTIVE: PHYSICAL EXAMINATION: GENERAL APPEARANCE: Elderly gentleman, pleasant SKIN: Warm, well perfused. LUNGS: Clear to auscultation bilaterally. HEART: Normal S1, S2. No murmurs, no rubs, no gallops ABDOMEN: Distended, fluid wave, bowel sounds present, ascites present EXTREMITIES: 1+ pitting edema, but has been improving PULSES: 2+ upper and lower extremity . LABORATORY DATA: Please see below. ASSESSMENT/ PLAN: Patient is a 73-year-old man with a past medical history significant for adenocarcinoma of the GE junction, status post esophagectomy, that was treated with radiation and chemotherapy in November 2017. History reported that he recently failed chemotherapy, due to a new lesion discovered on T12 that is currently undergoing radiation therapy. Presented with abdominal pain, shortness of breath secondary to abdominal ascites. Patient is status post Paracentesis on 02/13 (first ever, removed ~3L). 1. 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 Diabetes with hypoglycemia -Currently diet controlled, will use sliding scale. -Sugars were controlled hospital 3. Hyperlipidemia -Continue current medication 4.Glaucoma, -Use home medications 5. DVT -Heparin, hold today for procedure VS,Fishbone, I+O VS, Fishbone, I+O Laboratory Tests 02/17/19 15:49 02/18/19 06:27 Vital Signs Date Time Temp Pulse Resp B/P (MAP) Pulse Ox O2 Delivery O2 Flow Rate FiO2 02/18/19 06:00 98.0 102 16 107/73 (84) 95 Room Air I&O- Last 24 Hours up to 6 AM 02/18/19 05:59 Intake Total 100.0 ml Output Total 100 ml Balance 0 ml GME ATTESTATION GME ATTESTATION My faculty preceptor for this patient encounter was physically present during the encounter and was fully available. All aspects of the patient interview, examination, medical decision making process, and medical care plan development were reviewed and approved by the faculty preceptor. The faculty preceptor is aware and concurs with the plan as stated in the body of this note and will attest to such by his/her cosignature. ATTENDING NOTE I, Aftab Jean-Baptiste, have independently examined this patient and performed my own physical exam, as well as reviewed the documentation and edited where necessary. I have discussed in detail with the resident / student the findings and plan of treatment as documented by the resident / student and edited their note. I agree with their findings and treatment plan and have edited their documentation. I w ill continue to follow the patient during this hospital stay. ANASTASIYA ARGUELLES DO Feb 18, 2019 07:31 AFTAB JEAN-BAPTISTE MD Feb 18, 2019 14:47
[2019-02-18] MEDS: FUROSEMIDE 20 MG TAB PO SCH (11:30)
[2019-02-18 15:39] LABS: APPEARANCE, BODY FLUID HAZY (CLEAR); ASCITES FL COLOR YELLOW (COLORLESS); SOURCE, BODY FLUID ASCITES
[2019-02-18 15:47] LABS: SPEC. GRAVITY BODY FLUIDS 1.018 (NOT ESTABLISHED)
[2019-02-18 16:02] LABS: SOURCE, BODY FLUID ALBUMIN ASCITES
[2019-02-18 16:09] LABS: SOURCE, BODY FLUID GLUCOSE ASCITES; SOURCE, BODY FLUID TOT PROTEIN ASCITES; TOTAL PROTEIN, BODY FLUID 2.5 G/DL (NOT ESTABLISHED)
[2019-02-18] MEDS ORDERED: NORCO, ANEXSIA 5/325MG TABLET (HYDROcodone/ACETAMINOPHEN) PO PRN (17:15)
--- NOTE | 2019-02-18 19:58 | REP ---
Ultrasound-guided paracentesis The procedure was performed under the direct supervision of Dr. Galvez. The risks and benefits of the procedure were explained to the patient and informed consent was obtained. The largest pocket of fluid was localized in the right flank using ultrasound guidance. The skin was prepped and draped in a sterile fashion. 1% lidocaine was used as a local anesthetic. An 8-L[place]ian multi side-hole catheter was inserted using trocar technique. 5200 ml of yellow fluid was withdrawn with a sample sent to the lab for analysis. The patient tolerated the procedure well and there were no immediate complications. After the appropriate amount of monitored convalescence the patient was discharged from the department. Electronically Signed by CARLOS Bullard 02/18/2019 04:37 P Electronically Signed by Brian Galvez MD 02/18/2019 07:50 P
[2019-02-18] MEDS: HEPARIN SOD (PORCINE) 5000 UNITS/ML VIAL SC SCH (21:34)
[2019-02-18] MEDS: LATANOPROST 0.005% OPHTH SOLN 2.5 ML OU SCH (21:35)
[2019-02-18] MEDS: MORPHINE 15 MG SA TAB PO SCH (21:35)
[2019-02-19 02:00] VITALS: BP 101/65
[2019-02-19 03:01] VITALS: BP 101/65
[2019-02-19] MEDS: HEPARIN SOD (PORCINE) 5000 UNITS/ML VIAL SC SCH ×2 (05:41→12:52)
[2019-02-19 06:00] VITALS: BP 102/60
[2019-02-19 06:50] LABS: INR 1.33; PROTHROMBIN TIME 16.2 SECONDS (11.8-14.0)
[2019-02-19 07:30] LABS: BASO % 0.2 % (0.0-1.0); EOS # 0.3 10^3/uL (0.0-0.5); EOS % 2.5 % (0.0-3.0); HEMATOCRIT 46.9 % (42.0-52.0); HEMOGLOBIN 15.1 g/dl (13.5-17.5); LYMPH # 0.4 10^3/uL (1.5-5.0); LYMPH % 2.8 % (24.0-44.0); MEAN CORPUSCULAR HEMOGLOBIN 33.2 pg (27.0-33.0); MEAN CORPUSCULAR HGB CONC 32.2 g/dl (32.0-36.5); MEAN CORPUSCULAR VOLUME 103.1 fl (80.0-96.0); MONO # 1.4 10^3/uL (0.0-0.8); MONO % 10.8 % (0.0-5.0); NEUTROPHILS # 10.5 10^3/uL (1.5-8.5); NEUTROPHILS % 83.3 % (36.0-66.0); PLATELET COUNT, AUTOMATED 200 10^3/uL (150-450); RED BLOOD COUNT 4.55 10^6/uL (4.30-6.10); WHITE BLOOD COUNT 12.6 10^3/uL (4.0-10.0)
[2019-02-19] MEDS: HumaLOG INSULIN (NovoLOG) PER UNIT SC SCH ×2 (07:30→12:39)
[2019-02-19 07:44] LABS: ALT/SGPT 21 U/L (12-78); BILIRUBIN,TOTAL 0.8 MG/DL (0.2-1.0); BLOOD UREA NITROGEN 27 MG/DL (7-18); CARBON DIOXIDE LEVEL 25 MEQ/L (21-32); CHLORIDE LEVEL 99 MEQ/L (98-107); CREATININE FOR GFR 1.08 MG/DL (0.70-1.30); GLOMERULAR FILTRATION RATE > 60.0 (>42); GLUCOSE, FASTING 139 MG/DL (70-100); MAGNESIUM LEVEL 2.1 MG/DL (1.8-2.4); POTASSIUM SERUM 4.6 MEQ/L (3.5-5.1); SODIUM LEVEL 133 MEQ/L (136-145); TOTAL PROTEIN 6.2 GM/DL (6.4-8.2)
[2019-02-19] MEDS: FUROSEMIDE 20 MG TAB PO SCH (08:10)
[2019-02-19] MEDS: PANTOPRAZOLE 40MG TAB (PROTONIX) PO SCH (08:10)
[2019-02-19] MEDS: BRIMONIDINE 0.1% OPHTH SOLN 5 ML OU SCH (08:11)
[2019-02-19] MEDS: MORPHINE 15 MG SA TAB PO SCH (08:11)
[2019-02-19] MEDS ORDERED: SPIRONOLACTONE 12.5MG PER 1/2 TABLET PO SCH (09:00)
[2019-02-19] MEDS ORDERED: POTASSIUM CHLORIDE 10 MEQ SR TABLET PO SCH (09:00)
--- NOTE | 2019-02-19 10:24 | DS.PDOC ---
Discharge Summary General Date of Admission Feb 17, 2019 at 18:01 Date of Discharge 02/19/19 Primary Care Physician: KHALIF FOX MD Attending Physician: AFTAB MORRIS MD Discharge Summary PROCEDURES PERFORMED DURING STAY: Abdominal paracentesis ADMITTING DIAGNOSES / DISCHARGE DIAGNOSES: 1. Abdominal pain / distention - likely 2/2 abdominal ascites - possibly 2/2 malignant effusion, less likely 2/2 infectious etiology COMPLICATIONS/CHIEF COMPLAINT: Ascites, Esophageal Adenocarcinoma. HISTORY OF PRESENT ILLNESS/ HOSPITAL COURSE: Patient is a pleasant 73-year-old gentleman with a past medical history significant for adenocarcinoma of the GE junction, status post esophagectomy, that was treated with radiation and chemotherapy in November 2017. He presented with complaints of shortness of breath, and abdominal pain. On presentation patient reported that he had similar symptoms, prior was treated with paracentesis 02/13/2019. Approximately 3 L was removed from the paracentesis at [facility]. He was then scheduled for a follow up that upcoming Sunday. However, on Sunday he developed abdominal swelling, lower extremity swelling, with decreased appetite, he also has shortness of breath with activity and at rest. He denied chest pain, no dysphagia. He was admitted overnight, with paracentesis scheduled for the next morning. He underwent paracentesis the next morning and a total of 5200 mL of fluid was removed from patient. Fluid analysis was consistent with an elevated WBC count, however clinically patient did not have any abdominal tenderness and remained hemodynamically stable / afebrile. Patient was discharged the following day without any complications. He denied any pain, shortness of breath, denied any abdominal swelling. He was looking forward to going home. He'll follow-up with his Dr. Fox and his Oncologist. he has been advised to remain compliant with treatmetn plan and medications. He has been given a course of Cefdinir pending results of cultures. He has been advised to follow up with Interventional radiology for outpatient paracentesis procedures if required. DISCHARGE MEDICATIONS: Please see below. ALLERGIES: Please see below. PHYSICAL EXAMINATION ON DISCHARGE: VITAL SIGNS: Please see below. PE VITALS: See Below GENERAL APPEARANCE: Alert no acute distress. SKIN: Warm, well perfused. LUNGS: Clear to auscultation bilaterally. HEART: Normal S1, S2. No murmurs, no rubs, no gallops ABDOMEN: Soft. No masses. There is no abdominal tenderness appreciated in any of the 4 quadrants, Bowel sounds are present. TRUNK/SPINE:Straight. EXTREMITIES: 2+ pitting edema on bilateral lower extremity, patient is currently wearing compression stockings.. PULSES: 2+ upper and lower extremity . LABORATORY DATA: Please see below. IMAGING: None PROGNOSIS: Fair ACTIVITY: As tolerated DIET: As tolerated DISCHARGE PLAN: To home DISPOSITION: Stable DISCHARGE INSTRUCTIONS: 1. Discharged to home 2. Advised to remain compliant with treatment plan and medications 3. Return to the ER if you experience any problems ITEMS TO FOLLOWUP ON ON OUTPATIENT: 1. Esophageal cancer 2. Ascites DISCHARGE CONDITION: Stable TIME SPENT ON DISCHARGE: 35 minutes. Vital Signs/I&Os Vital Signs Date Time Temp Pulse Resp B/P (MAP) Pulse Ox O2 Delivery O2 Flow Rate FiO2 02/19/19 08:11 18 02/19/19 06:00 98.0 107 102/60 (74) 94 Room Air I&O- Last 24 Hours up to 6 AM 02/19/19 06:00 Intake Total 890.0 ml Output Total 750 ml Balance 140.0 ml Laboratory Data Labs 24H Laboratory Tests 2 02/18/19 11:26: Bedside Glucose (Misc Panel) 88 02/18/19 14:40: Body Fluid Source ASCITES, Body Fluid Color YELLOW, Body Fluid Appearance HAZY, Body Fluid Specific [place] 1.018, Body Fluid WBC (Auto) 555H, Body Fluid RBC (Auto) 3, Body Fluid Mononuclear Cells % Auto 53.2H, Fluid Polymorphonuclear Cell % Auto 46.8H, Body Fluid Glucose Source ASCITES, Body Fluid Glucose 59, Body Fluid Protein Source ASCITES, Body Fluid Total Protein 2.5, Body Fluid Albumin Source ASCITES, Body Fluid Albumin 1.1 02/18/19 17:42: Bedside Glucose (Misc Panel) 98 02/18/19 21:01: Bedside Glucose (Misc Panel) 128H 02/19/19 05:37: Bedside Glucose (Misc Panel) 68L 02/19/19 06:21: Prothrombin Time 16.2H, Prothromb Time International Ratio 1.33 02/19/19 06:29: Bedside Glucose (Misc Panel) 144H 02/19/19 07:02: Immature Granulocyte % (Auto) 0.4, Neutrophils (%) (Auto) 83.3H, Lymphocytes (%) (Auto) 2.8L, Monocytes (%) (Auto) 10.8H, Eosinophils (%) (Auto) 2.5, Basophils (%) (Auto) 0.2, Neutrophils # (Auto) 10.5H, Lymphocytes # (Auto) 0.4L, Monocytes # (Auto) 1.4H, Eosinophils # (Auto) 0.3, Basophils # (Auto) 0.0, Nucleated Red Blood Cells % (auto) 0.0, Anion Gap 9, Glomerular Filtration Rate > 60.0, Calcium Level 8.0L, Magnesium Level 2.1, Total Bilirubin 0.8, Aspartate Amino Transf (AST/SGOT) 25, Alanine Aminotransferase (ALT/SGPT) 21, Alkaline Phosphatase 123H, Total Protein 6.2L, Albumin 3.0L, Albumin/Globulin Ratio 0.94L CBC/BMP Laboratory Tests 02/19/19 07:02 FSBS Laboratory Tests Test 02/18/19 11:26 02/18/19 17:42 02/18/19 21:01 02/19/19 05:37 Range/Units Bedside Glucose (Misc Panel) 88 98 128 68 83-110 MG/DL Test 02/19/19 06:29 Range/Units Bedside Glucose (Misc Panel) 144 83-110 MG/DL Microbiology Microbiology 02/18/19 Gram Stain - Final, Resulted 02/18/19 Body Fluid Culture, Resulted Pending Discharge Medications Scheduled Brimonidine Tartrate (Alphagan P) 0.1% 5ML Drops, 1 DROP OP BID, (Reported) Calcium Carbonate (Calcium) 600 Mg Tablet, 600 MG PO BID, (Reported) Cefdinir (Cefdinir) 300 Mg Capsule, 300 MG PO BID Furosemide (Furosemide) 20 Mg Tablet, 20 MG PO DAILY, (Reported) Latanoprost (Xalatan) 0.005% 2.5ML Drops, 1 DROP OP QHS, (Reported) Multivitamin (Multivitamins) 1 Each Capsule, 1 CAP PO DAILY, (Reported) Pantoprazole Sodium (Pantoprazole Sodium) 40 Mg Tablet.dr, 40 MG PO DAILY, (Reported) Potassium Chloride (Potassium Chloride) 10 Meq Tablet.er, 10 MEQ PO DAILY, (Reported) Spironolactone (Aldactone) 25 Mg Tablet, 12.5 MG PO DAILY Scheduled PRN Docusate Calcium (Docusate Calcium) 240 Mg Capsule, 240 MG PO BID PRN for CONSTIPATION, (Reported) Hydrocodone/Acetaminophen (Hydrocodone-Acetamin 5-325 mg) 1 Each Tablet, 1 TAB PO Q6HP PRN for MILD/MODERATE PAIN (PS 1-7) Morphine Sulfate (Morphine Sulfate ER) 15 Mg Tablet.er, 15 MG PO BID PRN for PAIN Polyethylene Glycol 3350 (Miralax) 119 Gm Powder, 17 GM PO DAILY PRN for CONSTIPATION, (Reported) dilute in 8 ounces of water or juice Allergies Coded Allergies: No Known Allergies (Unverified , 02/17/19) GME ATTESTATION GME ATTESTATION My faculty preceptor for this patient encounter was physically present during the encounter and was fully available. All aspects of the patient interview, examination, medical decision making process, and medical care plan development were reviewed and approved by the faculty preceptor. The faculty preceptor is aware and concurs with the plan as stated in the body of this note and will attest to such by his/her cosignature. ATTENDING NOTE I, Aftab Morris, have independently examined this patient and performed my own physical exam, as well as reviewed the documentation and edited where necessary. I have discussed in detail with the resident / student the findings and plan of treatment as documented by the resident / student and edited their note. I agree with their findings and treatment plan and have edited their documentation. I will continue to follow the patient during this hospital stay. Time spent on discharge: 37 minutes ANASTASIYA ARGUELLES DO Feb 19, 2019 10:24 AFTAB MORRIS MD Feb 19, 2019 12:48
[2019-02-19] MEDS ORDERED: HYDR-4571 PO (10:26)
[2019-02-19] MEDS ORDERED: ALDA25TA2 PO (10:26)
[2019-02-19] MEDS ORDERED: MORP-69 PO (10:26)
[2019-02-19] MEDS ORDERED: CEFD300CAP PO (12:51)
[2019-02-19] MEDS ORDERED: CEFDINIR 300 MG CAP (OMNICEF) PO ONE (13:00)
[2019-02-19 14:00] VITALS: BP 93/69
== END 2019-02-19 14:00 | disposition home or self-care (01) | DRG 375 ==
LOC: M ED 14:49 → M ED INP 18:01 → M MS5PR 20:50
PROVIDERS: ADMIT Internal Medicine; ATTEND Internal Medicine
PROC: 30233J1 Transfusion of Nonautologous Serum Albumin into Peripheral Vein, Percutaneous Approach (ICD-10-PCS; 2019-02-17)
PROC: 0W9G3ZX Drainage of Peritoneal Cavity, Percutaneous Approach, Diagnostic (ICD-10-PCS; principal; 2019-02-18 14:23)
DX: C16.0 Malignant neoplasm of cardia (principal); R18.0 Malignant ascites; Z92.21 Personal history of antineoplastic chemotherapy; Z92.3 Personal history of irradiation; E11.649 Type 2 diabetes mellitus with hypoglycemia without coma; I10 Essential (primary) hypertension; H40.9 Unspecified glaucoma; L40.50 Arthropathic psoriasis, unspecified; Z85.828 Personal history of other malignant neoplasm of skin; E78.5 Hyperlipidemia, unspecified; Z96.643 Presence of artificial hip joint, bilateral; Z98.41 Cataract extraction status, right eye; Z90.49 Acquired absence of other specified parts of digestive tract; Z79.899 Other long term (current) drug therapy

== ENCOUNTER 2019-02-25 15:04 | Inpatient (IN) | payer MEDICARE, BC, OTHER ==
[~2019-02-25] VITALS: Ht 175.3 cm; Wt 66.7 kg
[~2019-02-25 15:04] MED LIST changes: -HYDR-3713 PO; -SULF1TAB93 PO
[2019-02-25] MEDS ORDERED: SULF1TAB93 PO (15:34)
[2019-02-25 16:46] LABS: HEMATOCRIT 47.5 % (42.0-52.0); HEMOGLOBIN 15.4 g/dl (13.5-17.5); MEAN CORPUSCULAR HEMOGLOBIN 33.2 pg (27.0-33.0); MEAN CORPUSCULAR HGB CONC 32.4 g/dl (32.0-36.5); MEAN CORPUSCULAR VOLUME 102.4 fl (80.0-96.0); PLATELET COUNT, AUTOMATED 184 10^3/uL (150-450); RED BLOOD COUNT 4.64 10^6/uL (4.30-6.10); WHITE BLOOD COUNT 18.4 10^3/uL (4.0-10.0)
[2019-02-25 17:00] LABS: ALBUMIN 2.6 GM/DL (3.2-5.2); ALT/SGPT 21 U/L (12-78); BILIRUBIN,TOTAL 0.5 MG/DL (0.2-1.0); BLOOD UREA NITROGEN 51 MG/DL (7-18); CARBON DIOXIDE LEVEL 21 MEQ/L (21-32); CHLORIDE LEVEL 95 MEQ/L (98-107); CREATININE FOR GFR 2.69 MG/DL (0.70-1.30); GLUCOSE, FASTING 177 MG/DL (70-100); NT-PRO BNP 1453 PG/ML (<125); POTASSIUM SERUM 5.8 MEQ/L (3.5-5.1); SODIUM LEVEL 129 MEQ/L (136-145); TOTAL PROTEIN 6.3 GM/DL (6.4-8.2)
--- NOTE | 2019-02-25 17:08 | REP ---
Portable chest x-ray: Single view. History: Effusion. Comparison chest x-ray: February 17, 2019. Findings: Monitoring electrodes overlie the chest. A right internal jugular Oiajay-T-Yuie catheter is seen terminating in the expected location of the superior vena cava. Oxygen delivery tubing is seen. Heart is not enlarged. Increased interstitial markings are seen in the bases bilaterally. The pleural angles appear sharp. No acute infiltrate is seen. Impression: Chronic increased interstitial markings in the bases. Pleural angles are sharp. No focal infiltrate. [id number] catheter. Electronically Signed by Brian Galvez MD 02/25/2019 05:59 P
[2019-02-25 17:11] LABS: INR 1.31
[2019-02-25 17:12] LABS: PARTIAL THROMBOPLASTIN TIME 30.8 SECONDS (25.0-38.4)
--- NOTE | 2019-02-25 18:22 | REPVR ---
PROCEDURE INFORMATION: Exam: CT Abdomen And Pelvis Without Contrast Exam date and time: 02/25/2019 5:47 PM Clinical history: 73 years old, male; Abnormal findings; Abnormal lab test; Elevated wbc; Other: Hypotension; Additional info: Hypotension, elevated wbc TECHNIQUE: Imaging protocol: Computed tomography of the abdomen and pelvis without contrast. Radiation optimization: All CT scans at this facility use at least one of these dose optimization techniques: automated exposure control; mA and/or kV adjustment per patient size (includes targeted exams where dose is matched to clinical indication); or iterative reconstruction. COMPARISON: CT ABD PELVIS WITH CONTRAST 08/06/2017 7:30 AM FINDINGS: Lungs: Multiple tree in bud opacities demonstrated in the right lower lobe and to lesser degree the left lower lobe associated with coarse patchy peripheral subpleural parenchymal infiltrates bilaterally, right greater than left. Findings consistent with alveolitis/terminal bronchiolitis. Several pulmonary parenchymal nodules in the left lower lobe measure up to 5 mm not demonstrated on the prior abdomen pelvis examination of 2018. Pleural space: 3 small bilateral pleural effusions, left greater than right. Liver: Stable cyst left lobe of the liver. Examination of the liver demonstrates a lobular surface contour, and contracted volume consistent with late stage cirrhosis. Gallbladder and bile ducts: Normal. No calcified stones. No ductal dilation. Pancreas: Normal. No ductal dilation. Spleen: Normal. No splenomegaly. Adrenals: Normal. No mass. Kidneys and ureters: Small nonobstructive calculus left kidney.There is diffuse pancreatic atrophy. Stomach and bowel: Mild diverticulosis is present in the distal colon. No diverticulitis. Appendix: No evidence of appendicitis. Intraperitoneal space: There is a moderate amount of free intraperitoneal fluid present. Of note bowel loops and a floating anteriorly in the ascites although no infiltrative mass is demonstrated entering the bowel loops posteriorly. Vasculature: The aorta demonstrates moderate atherosclerotic calcification. Lymph nodes: Unremarkable. No enlarged lymph nodes. Bladder: Unremarkable as visualized. Reproductive: Visualization of the prostate and seminal vessels obscured by beam hardening artifact generated from the hip prostheses. Bones/joints: Diffuse decrease in bone mineralization consistent with osteoporosis or osteopenia. Moderate central spinal stenosis L3-4 and moderate to severe central spinal stenosis L4-5. Bulging annulus at L5-S1. The spine demonstrates moderate degenerative changes. Status post bilateral total hip replacements. Soft tissues: There is soft tissue edema demonstrated in the abdominal wall, flanks and buttock regions consistent with anasarca. Other findings: Thickened bronchial payton in both lower lobes consistent with bronchitis. IMPRESSION: 1. Multiple tree in bud opacities demonstrated in the right lower lobe and to lesser degree the left lower lobe associated with coarse patchy peripheral subpleural parenchymal infiltrates bilaterally, right greater than left. Findings consistent with alveolitis/terminal bronchiolitis. 2. Thickened bronchial payton in both lower lobes consistent with bronchitis. 3. Several pulmonary parenchymal nodules in the left lower lobe measure up to 5 mm not demonstrated on the prior abdomen pelvis examination of 2018. 4. Examination of the liver demonstrates a lobular surface contour, and contracted volume consistent with late stage cirrhosis. 5. Anasarca. 6. There is a moderate amount of free intraperitoneal fluid present. Note is made of the fact of bowel loops in a floating anteriorly fluid a finding which can be associated with infiltrative disease in the mesentery or omental abnormalities. 7. Small nonobstructive calculus left kidney.There is diffuse pancreatic atrophy. 8. Mild diverticulosis is present in the distal colon. No diverticulitis. COMMENT: Consistent with the [employer]'s Incidental Findings Committee Report (J Am Frank Radiol 2010): Unless the patient's specific circumstances suggest otherwise, any liver lesion 0.5 cm or less, any cystic kidney lesion less than 1.0 cm, and/or any adrenal lesion 1.0 cm or less not otherwise characterized in this report as possessing suspicious or indeterminate imaging features is/are highly likely to be benign and do not require follow-up imaging or biopsy. Electronically signed by: Jn Jacques On 02/25/2019 18:21:53 PM
--- NOTE | 2019-02-25 18:33 | REPVR ---
PROCEDURE INFORMATION: Exam: CT Chest Without Contrast Exam date and time: 02/25/2019 5:47 PM Clinical history: 73 years old, male; Abnormal findings; Abnormal diagnostic tests; Abnormal ekg; Other: Hypotension; Additional info: Hypotension, elevated wbc TECHNIQUE: Imaging protocol: Computed tomography of the chest without contrast. Radiation optimization: All CT scans at this facility use at least one of these dose optimization techniques: automated exposure control; mA and/or kV adjustment per patient size (includes targeted exams where dose is matched to clinical indication); or iterative reconstruction. COMPARISON: CR PORTABLE CHEST X-RAY 02/25/2019 4:22 PM FINDINGS: Lungs: Multiple bilateral pulmonary parenchymal nodules measure up to 10 mm in the right lower lobe, some smooth border however most demonstrate irregular shapes with spiculated margins. Findings worrisome for possible metastatic disease although embolic infection not excluded. Extensive tree in bud opacities demonstrated in the right lower lobe. Findings consistent with alveolitis/terminal bronchiolitis. Thickened bronchial payton demonstrated primarily in the lower lobes but also the right middle lobe and minimally in the lingula lobe, findings consistent bronchitis. Geographic groundglass opacity in the left lobe measures 1.4 x 2.4 cm. Pleural space: Small left pleural effusion and minimal right pleural effusion. Heart: There is moderate atherosclerotic calcification of the coronary arteries. Small pericardial effusion. Mediastinum: Patulous dilated esophagus throughout its course associated with a patulous GE junction, findings may be secondary to achalasia versus gross reflux esophagitis. Colonic interposition surgery could have a similar appearance. Clinical correlation is needed. Aorta: Unremarkable. No aortic aneurysm. Lymph nodes: Multiple small mediastinal lymph nodes measure up to 1.5 cm in the retrocaval pretracheal area. Both neoplastic and inflammatory etiologies to be considered. Bones/joints: The spine demonstrates moderate degenerative changes. Soft tissues: See Lymph Nodes Finding. IMPRESSION: 1. Multiple bilateral pulmonary parenchymal nodules measuring up to 10 mm in the right lower lobe. Findings worrisome for possible metastatic disease although embolic infection not excluded. For patients at low risk (minimal or absent history of smoking and of other known risk factors), recommend CT at 3-6 months, then consider CT at 18-24 months. For patients at high risk (history of smoking or of other known risk factors), recommend CT at 3-6 months, then CT at 18-24 months. (Glenny et al., Fleischner Society, 2017) 2. Extensive tree in bud opacities demonstrated in the right lower lobe. Findings consistent with alveolitis/terminal bronchiolitis. 3. Thickened bronchial payton demonstrated primarily in the lower lobes but also the right middle lobe and minimally in the lingula lobe, findings consistent bronchitis. 4. Small left pleural effusion and minimal right pleural effusion. 5. Geographic groundglass opacity in the left lobe measures 1.4 x [address] at 6-12 months to confirm persistence of the nodule, then CT at 3 and at 5 years. (Glenny et al., Fleischner Society, 2017) 6. Patulous dilated esophagus throughout its course associated with a patulous GE junction, findings may be secondary to achalasia versus gross reflux esophagitis. Colonic interposition surgery could have a similar appearance and should be correlated with surgical history. 7. Multiple small mediastinal lymph nodes measure up to 1.5 cm in the retrocaval pretracheal area. Both neoplastic and inflammatory etiologies to be considered. Electronically signed by: Jn Jacques On 02/25/2019 18:32:40 PM
[2019-02-25] MEDS ORDERED: cefTRIAXone SOD 1 GM in D5W MINI-BAG PLUS 50 ML IV ONE (19:00)
[2019-02-25 19:40] LABS: TROPONIN I < 0.02 NG/ML (< 0.10)
[2019-02-25] MEDS ORDERED: HYDR-3713 PO (20:01)
[2019-02-25] MEDS ORDERED: MORP-69 PO (20:01)
[2019-02-25] MEDS: HumaLOG INSULIN (NovoLOG) PER UNIT SC SCH (21:00)
[2019-02-25] MEDS ORDERED: PATIROMER SORBITEX CALCIUM 8.4 GM POWDER PACKET (VELTASSA) PO ONE (21:15)
[2019-02-25 21:38] LABS: D-DIMER QUANT > 4000 ng/ml (<500)
[2019-02-25 22:15] VITALS: BP 100/55
--- NOTE | 2019-02-25 22:17 | REPVR ---
PROCEDURE INFORMATION: Exam: US Retroperitoneal Limited, Kidneys Exam date and time: 02/25/2019 10:04 PM Clinical history: 73 years old, male; Other: Lino TECHNIQUE: Imaging protocol: Real-time ultrasound of the retroperitoneum with image documentation. Examination was focused on the kidneys. COMPARISON: PARACENTESIS NEEDLE PLACE US 02/18/2019 2:26 PM FINDINGS: Right kidney: Right kidney measures 10.9 x 5.1 x 4.4 cm. Left kidney: Left kidney measures 11.2 x 4.5 x 6.6 cm. Small nonobstructive calculus left kidney. Intraperitoneal space: 4 quadrant moderate ascites demonstrated. IMPRESSION: 1. Small nonobstructive calculus left kidney. 2. 4 quadrant moderate ascites demonstrated. Electronically signed by: Jn Jacques On 02/25/2019 22:16:32 PM
[2019-02-25 23:00] VITALS: BP 82/53
--- NOTE | 2019-02-25 23:16 | HPEPDOC ---
[facility] Medical History & Physical Date of Admission Feb 25, 2019 Date of Service: Feb 25, 2019 Attending Physician: LUPE WISE MD History and Physical CHIEF COMPLAINT: Hypotension HISTORY OF PRESENT ILLNESS: Baldomero Benz is a 73-year-old male with history of adenocarcinoma of the GE junction who presents today to the ED after his appointment for paracentesis and being told that he was hypotensive and unable to undergo the procedure. He reports that he is profoundly short of breath, unable to walk more than 40 feet, but denies any lightheadedness or dizziness. In the ED he was found to have a blood pressure of 84/52 with a MAP of 63. He denies any recent fevers, chills, nausea, vomiting or diarrhea. He does have a cough with production of sputum. He does not have any urinary symptoms or ab dominal pain. Of note, he was recently admitted to [facility] in [place] over last weekend and had 3L fluid removed prior to discharge. Prior to that, on 02/19/2019 he had 5L drained at [facility]. His reports he has decreased appetite, has not been eating or drinking recently and has been very lethargic. The patient does have a decubitus ulcer on his lower back which was treated in [place]. REVIEW OF SYSTEMS: CONSTITUTIONAL: Feels well. No fever or chills HEENT: denies vision changes, no sinus problems, denies any trouble swallowing CARDIOVASCULAR: no palpitations RESPIRATORY: Reports profound shortness of breath, inability to walk more than 40 feet GENITOURINARY: No dysuria MUSCULOSKELETAL: Reports back pain GASTROINTESTINAL: Denies abdominal pain, no nausea/vomiting/diarrhea SKIN: No new rashes or lesions NEUROLOGICAL: No loss of sensation PSYCHIATRIC: Reports normal mood, no delusions or hallucinations ENDOCRINE: No hot/cold intolerance HEMATOLOGIC/LYMPHATIC: No easy bruising, no lumps/bumps ALLERGIC/IMMUNOLOGIC: No sinus symptoms PAST MEDICAL/SURGICAL HISTORY: Type 2 diabetes. History of hypertension Glaucoma. Psoriatic arthritis. Basal cell carcinoma. Cataracts. Hyperlipidemia. Prior history of C. difficile Esophageal cancer with mets to the spine and peritoneum status post esophagectomy with radiation. Bilateral hip replacement. Basal cell resection. Colonoscopy Right eye cataracts. Endoscopy Esophagectomy. Gastroduodenoscopy SOCIAL HISTORY: Lives in [place] with , quit smoking in 1988, denies alcohol FAMILY HISTORY: Diabetes Hypertension ALLERGIES: Please see below. HOME MEDICATIONS: Please see below. PHYSICAL EXAMINATION: VITAL SIGNS: Please see below. GENERAL APPEARANCE: Laying in bed, appears stated age, somewhat cachectic,no acute distress, calm, cooperative HEENT: EOMI, PERRLA, neck is supple with no thyromegaly or lymphadenopathy RESPIRATORY: Some expiratory rhonchi is appreciated, with decreased breath sounds in the bases bilaterally CARDIOVASCULAR: Somewhat elevated JVD, RRR,no murmurs/rubs/gallops ABDOMEN: Very protuberant, tense, positive fluid shift, unable to palpate organs EXTREMITIES: There is almost 3+ pitting edema in lower extremities bilaterally NEUROLOGICAL: No obvious focal deficits PSYCHIATRIC: normal mood/affect Skin: No rashes or ulcers. LN: No significant cervical or inguinal lymphadenopathy LABORATORY DATA: See below. IMAGING: Chest x-ray: Impression: Chronic increased interstitial markings in the bases. Pleural angles are sharp. No focal infiltrate. Vrltdx-A-Biri catheter CT CHEST: IMPRESSION: 1. Multiple bilateral pulmonary parenchymal nodules measuring up to 10 mm in the right lower lobe. Findings worrisome for possible metastatic disease although embolic infection not excluded. For patients at low risk (minimal or absent history of smoking and of other known risk factors), recommend CT at 3-6 months, then consider CT at 18-24 months. For patients at high risk (history of smoking or of other known risk factors), recommend CT at 3-6 months, then CT at 18-24 months. (MacMahon, et al., Fleischner Society, 2017) 2. Extensive tree in bud opacities demonstrated in the right lower lobe. Findings consistent with alveolitis/terminal bronchiolitis. 3. Thickened bronchial payton demonstrated primarily in the lower lobes but also the right middle lobe and minimally in the lingula lobe, findings consistent with bronchitis. 4. Small left pleural effusion and minimal right pleural effusion. 5. Geographic groundglass opacity in the left lobe measures 1.4 x [address] at 6-12 months to confirm persistence of the nodule, then CT at 3 and at 5 years. (MacMahon, et al., Fleischner Society, 2017) 6. Patulous dilated esophagus throughout its course associated with a patulous GE junction, findings may be secondary to achalasia versus gross reflux esophagitis. Colonic interposition surgery could have a similar appearance and should be correlated with surgical history. 7. Multiple small mediastinal lymph nodes measure up to 1.5 cm in the retrocaval pretracheal area. Both neoplastic and inflammatory etiologies to be considered. CT ABD/PELVIS: IMPRESSION: 1. Multiple tree in bud opacities demonstrated in the right lower lobe and to lesser degree the left lower lobe associated with coarse patchy peripheral subpleural parenchymal infiltrates bilaterally, right greater than left. Findings consistent with alveolitis/terminal bronchiolitis. 2. Thickened bronchial payton in both lower lobes consistent with bronchitis. 3. Several pulmonary parenchymal nodules in the left lower lobe measure up to 5 mm not demonstrated on the prior abdomen pelvis examination of 2018. 4. Examination of the liver demonstrates a lobular surface contour, and contracted volume consistent with late stage cirrhosis. 5. Anasarca. 6. There is a moderate amount of free intraperitoneal fluid present. Note is made of the fact of bowel loops in a floating anteriorly fluid a finding which can be associated with infiltrative disease in the mesentery or omental abnormalities. 7. Small nonobstructive calculus left kidney.There is diffuse pancreatic atrophy. 8. Mild diverticulosis is present in the distal colon. No diverticulitis. MICROBIOLOGY: Please see below. ASSESSMENT: This is a 73-year-old male with history of metastatic adenocarcinoma of the GE junction who presents with hypotension and shortness of breath, found to be tachycardic, hypoxic and have lactic acidosis, elevated WBC, NATANAEL concerning for sepsis. Likely source of infection SBP versus pneumonia. PLAN: 1. Sepsis vs Septic Shock -Possible sources of infection include bronchitis, pneumonia, or spontaneous b acterial peritonitis -Will start on empiric antibiotic Zosyn -As the patient is currently fluid overloaded unable to give aggressive fluid resuscitation. Can give pressors via port if MAP falls below 60 for extended period of time. -Lactic acid found to be 4.1. Will trend. -QSOFA Score = 1 = not high risk -f/u UA, Ucx, blood cx, sputum cx, and work up for PNA 2. Hypotension -Patient's BP in 80s systolic with MAPS around 60-65 -Possible cardiogenic shock vs septic shock -Echocardiogram ordered -Internet Manager, Dr. Snachez, consulted. Patient has an Ktumvf-X-Medr that can be accessed if pressors needed 3. Dyspnea -There is a suspicion for PE, as the patient is somewhat tachycardic and hypox ic. Has been bed bound (recent hospitalization) and cancer puts him in hypercoagulable state. -D-dimer ordered. -Unable to do CTA given NATANAEL but may consider LE dopplers if SOB does not improve with paracentesis. -Will hold off on ppx anticoagulation for now in preparation for possible paracentesis 4. NATANAEL -Creatinine found to be 2.69, up from 1.08, just a week ago. The patient has no known history of kidney disease. His Cr was reported increased on his most recent admission at [facility]. -Likely prerenal due to hypotension vs fluid compression of ascites on renal arteries -Renal ultrasound ordered -Will calculate FEurea -Holding home lasix for time being bc of hypotension 5. Hyperkalemia -K found to be 5.8. No EKG changes noted. -Patient was on K supplementation at home and also has NATANAEL -Will hold K supplements for now and recheck BMP in AM 6. Hyponatremia -Na found to be 129. -Likely secondary to fluid overload possibly 2/2 CHF. -Likely to improve with drainage. 7. Hyperchloremia -could be 2/2 metabolic acidosis -patient also has lactic acidosis -VBG ordered 8. Elevated BNP at 1453. -Patient has no history of CHF. -Echo ordered -monitor strict Is and Os, daily weights and restrict PO fluid intake to 67oz -low salt diet 9. Ascites -per patient's family ascites is 2/2 malignancy -it is also possible that liver cirrhosis and CHF are contributing to the ascites -If BPs remain stable consider IR consult for paracentesis in the AM 10. Metastatic gastric adenocarcinoma -Pain management as prescribed at home -It is not clear what the goals of care are for this patient as discussed with him by his oncologist in [place]. -We requested records from [facility] and [facility] -Recommend day team contact to discuss. Shabbir Mcdermott MD at Hematology/Oncology of [facility]. Indicates poor prognosis that patient has had 3 paracenteses with in a week with >3L removed. Seems fluid accumulation is quite rapid. 11. Pulmonary Nodules -the largest nodule is 10mm -patient didn't mention mets to lungs -day time team may consider contacting the patient's Oncologist to confirm location of mets prior to IR or Pulm consult for biopsy 12. Liver Cirrhosis -per CT scan findings -patient & his family denied knowledge of this diagnosis -monitor LFTS 13. Sacral decubitus ulcer -Wound care, air mattress ordered DISPO: likely home after more than 2 midnight's stay OTHER: The patient's terminal carman prognosis in the setting of metastatic cancer is poor. Need to contact oncologist in [place] in AM to discuss plan regarding chemotherapy and goals of care. Patient is full code at this time. Vital Signs Vital Signs Date Time Temp Pulse Resp B/P (MAP) Pulse Ox O2 Delivery O2 Flow Rate FiO2 02/25/19 20:16 109 22 85/54 (64) 94 Nasal Cannula 3.0 02/25/19 15:05 97.3 Laboratory Data Labs 24H Laboratory Tests 2 02/25/19 15:50: Nucleated Red Blood Cells % (auto) 0.0, Prothrombin Time 16.0H, Prothromb Time International Ratio 1.31, Activated Partial Thromboplast Time 30.8, Anion Gap 13, Glomerular Filtration Rate 25.0L, Calcium Level 8.0L, Total Bilirubin 0.5, Aspartate Amino Transf (AST/SGOT) 18, Alanine Aminotransferase (ALT/SGPT) 21, Alkaline Phosphatase 130H, Troponin I < 0.02, HZ-Isk-N-Type Natriuretic Peptide 1453H, Total Protein 6.3L, Albumin 2.6L, Albumin/Globulin Ratio 0.70L 02/25/19 19:42: Lactic Acid Level 4.1*H CBC/BMP Laboratory Tests 02/25/19 15:50 Microbiology Microbiology 02/25/19 Blood Culture, Received Pending 02/25/19 Blood Culture, Received Pending Home Medications Scheduled Brimonidine Tartrate (Alphagan P) 0.1% 5ML Drops, 1 DROP OU BID Calcium Carbonate (Calcium) 600 Mg Tablet, 600 MG PO BID Furosemide (Furosemide) 20 Mg Tablet, 20 MG PO DAILY PCP TOLD HIM TO STOP TAKING WHILE ON BACTRIM Latanoprost (Xalatan) 0.005% 2.5ML Drops, 1 DROP OU QHS Morphine Sulfate (Morphine Sulfate ER) 15 Mg Tablet.er, 15 MG PO BID Multivitamin (Multivitamins) 1 Each Capsule, 1 CAP PO DAILY Pantoprazole Sodium (Pantoprazole Sodium) 40 Mg Tablet.dr, 40 MG PO DAILY Potassium Chloride (Potassium Chloride) 10 Meq Tablet.er, 10 MEQ PO DAILY Sulfamethoxazole/Trimethoprim (Sulfamethoxazole-Tmp Ds Tablet) 1 Each Tablet, 1 TAB PO BID STARTED 02/23. DAY SUPPLY. Scheduled PRN Docusate Calcium (Docusate Calcium) 240 Mg Capsule, 240 MG PO BID PRN for CONSTIPATION Hydrocodone/Acetaminophen (Hydrocodone-Acetamin 5-325 mg) 1 Each Tablet, 1 TAB PO Q6H PRN for BREAKTHROUGH PAIN MDD 4 Polyethylene Glycol 3350 (Miralax) 119 Gm Powder, 17 GM PO DAILY PRN for CONSTIPATION dilute in 8 ounces of water or juice Allergies Coded Allergies: No Known Allergies (Unverified , 02/17/19) A-FIB/CHADSVASC A-FIB History Current/History of A-Fib/PAF?: No GME ATTESTATION GME ATTESTATION My faculty preceptor for this patient encounter was physically present during the encounter and was fully available. All aspects of the patient interview, examination, medical decision making process, and medical care plan development were reviewed and approved by the faculty preceptor. The faculty preceptor is aware and concurs with the plan as stated in the body of this note and will attest to such by his/her cosignature. ATTENDING NOTE I examined at 830PM, discussed the case with and agree with the plan as documented above. CC time 35 min TATY BELTRÁN MD Feb 25, 2019 21:32 LUPE WISE MD Feb 25, 2019 23:26
--- NOTE | 2019-02-25 23:27 | ECGEPIP ---
[facility] - ED Test Date: 2019-02-25 Pat Name: PHILIPPE CURIEL Department: Room: - Gender: Male Rn Ostomy: ROLANDO : 1945 Requested By: COLLETTE Guzman Order Number: [id number] Reading MD: Kaushik Tang Measurements Intervals [place] Rate: 113 P: 55 FL: 134 QRS: 46 QRSD: 85 T: 67 QT: 281 QTc: 385 Interpretive Statements SINUS TACHYCARDIA WITH OCCASIONAL ATRIAL PREMATURE COMPLEXES NONSPECIFIC ST & T-WAVE ABNORMALITY Electronically Signed on 02-25-2019 23:26:35 EST by Kaushik Tang
[2019-02-25 23:30] VITALS: BP 78/53
[2019-02-25] MEDS ORDERED: GLUCAGON FOR INJ 1 MG VIAL (J1610) SC PRN (23:30)
[2019-02-25] MEDS ORDERED: GLUCOSE 4 GM CHEW TABLET PO PRN (23:30)
[2019-02-25] MEDS ORDERED: NORCO, ANEXSIA 5/325MG TABLET (HYDROcodone/ACETAMINOPHEN) PO PRN (23:30)
[2019-02-25] MEDS ORDERED: DEXTROSE 50% 50 ML SYRINGE IV PRN (23:30)
[2019-02-25] MEDS: PIPERACILLIN/TAZOBACTAM SOD 3.375 GM in D5W MINI-BAG PLUS 50 ML IV SCH (23:36)
[2019-02-26] VITALS (91 sets, daily range): BP systolic 76–138; BP diastolic 47–77
[2019-02-26] MEDS ORDERED: CALCIUM CARBONATE 500 MG CHEW U/D PO PRN (00:15)
[2019-02-26 00:52] LABS: VENOUS BASE EXCESS -7.7 (-2.0-2.0); VENOUS HCO3 17.3 MEQ/L (23.0-27.0); VENOUS O2 SATURATION 91.9 % (60.0-80.0); VENOUS PARTIAL PRESSURE CO2 34.1 mmHg (38.0-50.0); VENOUS PARTIAL PRESSURE O2 69.4 mmHg (30.0-50.0); VENOUS PH 7.324 UNITS (7.330-7.430); VENOUS STANDARD HCO3 18.2 MEQ/L; VENOUS TOTAL CO2 18.4 MEQ/L (24.0-28.0)
[2019-02-26] MEDS: BRIMONIDINE 0.1% OPHTH SOLN 5 ML OU SCH ×3 (01:02→20:35)
[2019-02-26] MEDS: LATANOPROST 0.005% OPHTH SOLN 2.5 ML OU SCH ×2 (01:02→20:35)
[2019-02-26 01:25] LABS: INFLUENZA A AMPLIFICATION NEGATIVE (NEGATIVE); INFLUENZA B AMPLIFICATION NEGATIVE (NEGATIVE)
[2019-02-26 03:37] LABS: POTASSIUM RANDOM URINE 43.2 MEQ/L; SODIUM,RANDOM URINE < 10 MEQ/L; UREA NITROGEN RANDOM URINE 318 MG/DL
[2019-02-26] MEDS: PIPERACILLIN/TAZOBACTAM SOD 3.375 GM in D5W MINI-BAG PLUS 50 ML IV SCH ×4 (05:03→23:12)
[2019-02-26 05:13] LABS: HEMATOCRIT 41.5 % (42.0-52.0); HEMOGLOBIN 14.4 g/dl (13.5-17.5); MEAN CORPUSCULAR HGB CONC 34.7 g/dl (32.0-36.5); MEAN CORPUSCULAR VOLUME 97.9 fl (80.0-96.0); PLATELET COUNT, AUTOMATED 171 10^3/uL (150-450); RED BLOOD COUNT 4.24 10^6/uL (4.30-6.10); WHITE BLOOD COUNT 20.4 10^3/uL (4.0-10.0)
[2019-02-26 05:45] LABS: ALBUMIN 2.4 GM/DL (3.2-5.2); BILIRUBIN,TOTAL 0.6 MG/DL (0.2-1.0); CALCIUM LEVEL 7.6 MG/DL (8.8-10.2); CREATININE FOR GFR 3.03 MG/DL (0.70-1.30); GLOMERULAR FILTRATION RATE 21.8 (>42); TOTAL PROTEIN 5.8 GM/DL (6.4-8.2)
[2019-02-26] MEDS ORDERED: NOREPINEPHRINE BITARTRATE 8 MG in D5W 492 ML IV SCH (05:45)
[2019-02-26] MEDS ORDERED: PATIROMER SORBITEX CALCIUM 8.4 GM POWDER PACKET (VELTASSA) PO ONE (08:00)
[2019-02-26] MEDS: MORPHINE 15 MG SA TAB PO SCH ×2 (08:08→20:34)
[2019-02-26] MEDS: PANTOPRAZOLE 40MG TAB (PROTONIX) PO SCH (08:09)
[2019-02-26] MEDS: MULTIVITAMINS/MINERALS THERAP 1 TAB PO SCH (08:09)
[2019-02-26] MEDS: HumaLOG INSULIN (NovoLOG) PER UNIT SC SCH ×4 (08:10→20:35)
[2019-02-26] MEDS ORDERED: SODIUM BICARBONATE 8.4% INJ 50 ML SYRINGE IV STA (11:00)
--- NOTE | 2019-02-26 13:50 | IPNPDOC ---
Text Note Date of Service The patient was seen on 02/26/19. NOTE SUBJECTIVE: Says breathing is same as before, denies any abdominal distension or abdominal pain. No fever or chills. No chest pain. VITAL SIGNS: Please see below. GENERAL APPEARANCE: Laying in bed, appears stated age, somewhat cachectic,no acute distress, calm, cooperative HEENT: EOMI, PERRLA, neck is supple with no thyromegaly or lymphadenopathy RESPIRATORY: bilateral vesicular breath sounds, decreased breath sounds in the bases bilaterally CARDIOVASCULAR: Somewhat elevated JVD, RRR,no murmurs/rubs/gallops ABDOMEN: Very protuberant, tense, positive fluid shift, unable to palpate organs EXTREMITIES: There is almost 3+ pitting edema in lower extremities bilaterally NEUROLOGICAL: No obvious focal deficits PSYCHIATRIC: normal mood/affect Skin: No rashes , Sacral decubiti. LN: No significant cervical or inguinal lymphadenopathy Labs and Radiology Reviewed ASSESSMENT: This is a 73-year-old male with history of metastatic adenocarcinoma of the GE junction who presents with hypotension and shortness of breath, found to be tachycardic, hypoxic and have lactic acidosis, elevated WBC, NATANAEL and septic shock. Likely source of infection SBP versus pneumonia. Septic Shock Vs Cardiogenic shock -patient noted to have bps in 90s in last admission. He probably has chronic hypotension however unable to rule out infective cause. -Possible sources of infection include pneumonia, bronchitis/ bronchiolitis or spontaneous bacterial peritonitis -Zosyn -continue levophed. -Echo ordered -will do paracentesis when a little more stable. Dyspnea - could be due to due to acidosis from the renal failure - PE remains in the differential - could also be due to ascitis NATANAEL with hyperkalemia could be hepatorenal syndrome / fluid compression from the ascites/ prerenal/ from infection and shock. patient does not want HD but as much as we can do medically will get paracentesis. neprhology consulted. will follow reccomendations. Hyponatremia -Likely secondary to fluid overload possibly 2/2 CHF. -Likely to improve with drainage. Malignant Ascites -per patient's family ascites is 2/2 malignancy -it is also possible that liver cirrhosis and CHF are contributing to the ascities -will schedule for paracentesis. 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 Liver Cirrhosis -per CT scan findings -patient & his family denied knowledge of this diagnosis -monitor LFTS Sacral decubitus ulcer -Wound care, air mattress ordered CODE: DNR and DNI VS,Fishbone, I+O VS, Fishbone, I+O Laboratory Tests 02/25/19 15:50 02/26/19 05:01 Vital Signs Date Time Temp Pulse Resp B/P (MAP) Pulse Ox O2 Delivery O2 Flow Rate FiO2 02/26/19 12:49 97.4 103 20 90/63 91 Nasal Cannula 2.0 I&O- Last 24 Hours up to 6 AM 02/26/19 06:00 Intake Total 250 ml Output Total 170 ml Balance 80 ml JOSE MANUEL ALFORD MD Feb 26, 2019 13:50
[2019-02-26 19:04] LABS: CALCIUM LEVEL 7.6 MG/DL (8.8-10.2); CREATININE FOR GFR 2.83 MG/DL (0.70-1.30); GLOMERULAR FILTRATION RATE 23.6 (>42); POTASSIUM SERUM 4.7 MEQ/L (3.5-5.1)
--- NOTE | 2019-02-26 20:15 | ECHO ---
DATE OF PROCEDURE: 02/26/2019 DATE OF : 1945 AGE: 73 REFERRING PHYSICIAN: Emilie Jasno PATIENT LOCATION: Room 3206 REASON FOR ECHOCARDIOGRAM: Congestive heart failure. 2D MEASUREMENTS: IVS: 0.83 cm LV: 4.3 cm LVPW: 0.76 cm LA: 4.0 cm Aorta: 3.1 cm DOPPLER MEASUREMENTS: Peak velocity across the aortic valve: 1.1 m/s Peak velocity across the LVOT: 0.86 m/s Mitral E: 0.38, Mitral A: 0.58 with a ratio of 0.7 Maximum tricuspid valve velocity: 2.7 m/s 2D COMMENTS: 1. Normal left ventricular size, wall thickness, and low normal global left ventricular systolic ejection fraction. The estimated left ventricular systolic ejection fraction is 55%. 2. Borderline enlarged left atrium at 4.0 cm. Normal right atrium and right ventricle. 3. The atrial septum appeared to be normal without evidence of defect or shunt. 4. Normal aortic root. 5. Trace pericardial effusion, no evidence of cardiac tamponade. Echo-free space noted in the abdomen around the liver and may represent ascites. 6. Mildly calcified aortic valve with normal leaflet excursion. Mildly calcified mitral annulus with normal anterior mitral valve leaflet motion. Normal tricuspid valve. The pulmonic valve and proximal pulmonary artery branches were not well visualized. 7. Normal pulmonic valve. The proximal pulmonary artery branches were not well visualized. 8. The inferior vena cava was not visualized. DOPPLER: No significant valvular abnormalities detected but mild tricuspid regurgitation. The calculated pulmonary artery systolic pressure varies between 30-40 mmHg. Abnormal relaxation pattern was noted across the mitral valve leaflets as well as the mitral valve annulus consistent with features of grade 1 left ventricular diastolic dysfunction. IMPRESSION 1. Low normal global left ventricular systolic function. There are some features of grade 1 left ventricular diastolic dysfunction manifested by abnormal relaxation. 2. Aortic valve sclerosis without stenosis or aortic regurgitation. 3. Isolated mitral annulus calcification. No evidence of mitral regurgitation or mitral stenosis. The left atrium is borderline enlarged. 4. Mild tricuspid regurgitation with mild pulmonary hypertension. 5. Trace pericardial effusion, no evidence of cardiac tamponade. Probably ascites noted and I will recommend an ultrasound of the abdomen for further evaluation. 6. The study was technically limited due to poor acoustic window.
[2019-02-26] MEDS: DOCUSATE SODIUM 100 MG CAP PO PRN (20:35)
[2019-02-26] MEDS: NOREPINEPHRINE BITARTRATE 8 MG in D5W 492 ML IV SCH (22:02)
--- NOTE | 2019-02-26 22:23 | CR ---
DATE OF CONSULTATION: 02/26/2019 REQUESTING PHYSICIAN: Cortney Fritz MD CONSULTING PHYSICIAN: Mary Dupree MD REASON FOR CONSULTATION: Oligoanuria acute renal failure in this patient with hyperkalemia. CHIEF COMPLAINT: Hypotension. HISTORY OF PRESENT ILLNESS: Baldomero Benz is previously unknown to me. 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 His primary oncologist is Dr. Mcdermott. The patient also has a past medical history of multiple other conditions including type 2 diabetes, dyslipidemia and other comorbid conditions mentioned below. He was admitted yesterday after he came for an outpatient paracentesis appointment and was found to be significantly hypotensive and his paracentesis was subsequently cancelled and he was directed to the emergency room. In the emergency room, he was found have blood pressure 84/52 and laboratory studies showed acute renal failure with hyperkalemia, leukocytosis and the patient was subsequently admitted to the intensive care unit. He tells me that he was just discharged from [facility] on Sunday; and during that admission, he also had an acute kidney injury and he had a paracentesis during that admission as well. The patient tells me that when he was discharged he was placed on Bactrim one tablet twice a day and he was also taking potassium tablets. He denies any NSAID use. Denies any fevers or chills, nausea, vomiting or diarrhea. He was started on pressor support in the intensive care unit and repeat laboratory studies showed worsening renal function and worsening hyperkalemia. The patient had a Fuentes catheter placed with very minimal urine output and nephrology evaluation was subsequently requested for help in the management of this patient with significant electrolyte derangements and oligoanuria renal failure. PAST MEDICAL AND PAST SURGICAL HISTORY: 1. Prior history of diabetes and hypertension, though he is no longer on antidiabetics nor antihypertensives. 2. Glaucoma. 3. Psoriatic arthritis. 4. Basal cell carcinoma. 5. Dyslipidemia. 6. History of Clostridium difficile. 7. 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 8. Status post FOLFOX chemotherapy. 9. Esophagectomy and radiation. 10. Bilateral hip replacement. 11. Basal cell resection. 12. Colonoscopy. 13. Endoscopy. 14. Gastroduodenoscopy. 15. Paracentesis x2. SOCIAL HISTORY: He lives in [place]. He is . He has one daughter. He is an ex-smoker. There is no alcohol use. FAMILY HISTORY: Diabetes and hypertension and his mother was also on dialysis. ALLERGIES: No known allergies. HOME MEDICATIONS INCLUDE: Calcium carbonate, furosemide, morphine sulfate 15 mg by mouth twice a day, multivitamin, Protonix, potassium 10 mEq by mouth daily, Bactrim one tab by mouth twice a day. REVIEW OF SYSTEMS: Constitutional: He denies fever or chills. Eyes: He denies visual changes or tearing. ENT: He denies sinus problems or rhinorrhea. Cardiovascular: He reports some worsening leg swelling. He denies a history of myocardial infarction. He denies chest pain and palpitations. Respiratory: He reports shortness of breath. He denies cough. Genitourinary: He reports a decreased urination. He denies dysuria. Gastrointestinal: He reports decreased by mouth intake. He reports ascites. He reports two paracenteses. He denies nausea and vomiting. Musculoskeletal: He reports back pain and leg swelling. Skin: He denies new rashes or lesions. Neurologic: He denies seizure or syncope. Psychiatric: He reports normal mood. Denies history of psychiatric disorder. Endocrine: He reports history of diabetes, but is not on hypoglycemics. He denies thyroid issues. Hematologic: He reports he has been on FOLFOX chemotherapy. He denies easy bleeding. Remainder review of systems is negative or as per history of present illness. PHYSICAL EXAMINATION: Vital signs: Temperature 97.8, pulse 96, respiratory rate 18, blood pressure 101/59, saturating 94% on 2 liters nasal cannula. Intake is 1420 urine output is 100, weight in the bed scale today is 72.3. Kg. General: The patient is seen lying in the intensive care unit, elderly male, frail, smiling, in no acute distress. Family is present at the bedside. Extraocular muscles are intact. Tongue is moist. Neck is supple. There is decreased lean muscle mass. Jugular veins are elevated. Cardiac: S1-S2. Regular rate and rhythm. Lungs have occasional scattered rhonchi and diminished breath sounds at the bases. No accessory muscle use to tachypnea. He is seen on nasal cannula. The abdomen has positive fluid wave and ascites. Extremities: Show 3+ pitting edema that extends up to the mid thigh. Genitourinary: Shows Fuentes catheter with very minimal urine in the tubing. Neurologic: He is oriented to person, place, situation. No focal deficits. Psychiatric: Appropriate mood and effect. Skin: No rashes. LABORATORY DATA: Sodium 127, potassium 6.0, bicarbonate 19, BUN 59, creatinine 3.0, albumin 2.4, lactic acid 2.4, white count 20, hemoglobin 14.4. MICROBIOLOGY: Blood cultures are drawn and pending. IMAGING STUDIES: CT scan of chest, abdomen and pelvis is reviewed and also discussed with Dr. Cortney Fritz. The patient has multiple bilateral pulmonary parenchymal nodules with spiculated margins, anasarca, lobular and contracted liver consistent with late stage cirrhosis. Kidneys show a small nonobstructive calculus in the left, otherwise unremarkable. Bladder is unremarkable as well. INPATIENT MEDICATIONS. I started the patient on albumin 1 gram per kg bolus and then 25 grams every 6 hours. He is on Levophed infusion, Zosyn 3.375 grams IV every 6 hours, insulin, Protonix 40 mg by mouth daily, Veltassa 16.8 grams by mouth x1 and I gave him sodium bicarbonate 50 mEq one ampule x1. PROBLEMS: 1. Oligoanuric acute renal failure in this patient with decompensated cirrhosis with ascites, urinary sodium of less than 10, hypotension, leukocytosis and recent acute kidney injury as well during his the hospitalization at [place] last week. The patient also reports recent twice a day Bactrim use as an outpatient. His acute renal failure is felt to be secondary to type 1 hepatorenal syndrome versus less likely septic shock. However, I would treat him for both at this time. The patient is on Levophed pressor support and I have asked the nurses to titrate for MAP of 70 to allow for better renal perfusion pressors and I am giving him albumin 1 gm/kg bolus and then starting him on 25% 25 grams of albumin every 6 hours and I would continue him on pressor support as well. I had a lengthy discussion with the patient and his family at bedside along with Dr. Fritz regarding his recurrent renal failure. The patient at this time would like to proceed with maximum medical therapy, but does not wish dialysis. 2. Sepsis. White count of 20, lactic acidosis, hypotension in this patient who is immunocompromised and has malignancy with metastasis and has been on chemotherapy. His cultures have been drawn. He is on broad-spectrum empiric antimicrobials as per the primary team. He is on pressor support. His lactic acid has improved. I have asked nurses to titrate Levophed for MAP of 70. 3. Recurrent ascites. The patient reports two lifetime paracenteses. CT scan is suggestive of cirrhosis. No need for paracentesis at present. His ascites is not tense and he just had a paracentesis on Sunday. Continue treatment for hepatorenal syndrome with pressors and albumin. 4. Fluid overload, significant peripheral edema and elevated BNP. Echocardiogram is pending. He has hypervolemic hyponatremia. His volume overload may be related to cirrhosis versus congestive heart failure (CHF). He is not suitable for diuretics at present given his renal failure and hypotension. 5. Hyperkalemia. It is secondary to renal failure, Bactrim use and potassium supplementation and metabolic acidosis. He has received Veltassa. I am giving him sodium bicarbonate and he is receiving treatment for his underlying hepatorenal syndrome/sepsis and his potassium should improve if his renal function improved. He is on a 2 gram potassium restriction in the diet. 6. Hypervolemic hyponatremia likely related to cirrhosis, ascites and possibly to congestive heart failure (CHF). No IV fluids at this time and he is presently not suitable for diuretic therapy. 7. DISPOSITION: Continue with maximum medical treatment at this time for type 1 hepatorenal syndrome and septic shock. Have had lengthy discussion with the patient, his family and with the hospitalist service at the bedside. The patient has elected for DO NOT RESUSCITATE/DO NOT INTUBATE status and does not wish dialysis. Repeat chemistry is ordered for this evening.
[2019-02-27] VITALS (118 sets, daily range): BP systolic 86–140; BP diastolic 51–80
[2019-02-27] MEDS: PIPERACILLIN/TAZOBACTAM SOD 3.375 GM in D5W MINI-BAG PLUS 50 ML IV SCH ×4 (04:00→23:10)
[2019-02-27 06:15] LABS: HEMATOCRIT 37.3 % (42.0-52.0); HEMOGLOBIN 12.9 g/dl (13.5-17.5); MEAN CORPUSCULAR HEMOGLOBIN 33.8 pg (27.0-33.0); MEAN CORPUSCULAR HGB CONC 34.6 g/dl (32.0-36.5); MEAN CORPUSCULAR VOLUME 97.6 fl (80.0-96.0); PLATELET COUNT, AUTOMATED 135 10^3/uL (150-450); RED BLOOD COUNT 3.82 10^6/uL (4.30-6.10)
[2019-02-27 07:04] LABS: ALBUMIN 3.6 GM/DL (3.2-5.2); CALCIUM LEVEL 8.2 MG/DL (8.8-10.2); CREATININE FOR GFR 2.17 MG/DL (0.70-1.30); GLOMERULAR FILTRATION RATE 32.1 (>42); POTASSIUM SERUM 4.5 MEQ/L (3.5-5.1); TOTAL PROTEIN 6.6 GM/DL (6.4-8.2)
[2019-02-27] MEDS: PANTOPRAZOLE 40MG TAB (PROTONIX) PO SCH (07:42)
[2019-02-27] MEDS: HumaLOG INSULIN (NovoLOG) PER UNIT SC SCH ×4 (07:42→20:18)
[2019-02-27] MEDS: MORPHINE 15 MG SA TAB PO SCH ×2 (07:43→20:20)
[2019-02-27] MEDS: MULTIVITAMINS/MINERALS THERAP 1 TAB PO SCH (07:44)
[2019-02-27] MEDS ORDERED: FUROSEMIDE 100 MG/10 ML VIAL (J1940) As Ordered ONE (08:39)
[2019-02-27] MEDS ORDERED: FUROSEMIDE 100 MG/10 ML VIAL (J1940) IV ONE (09:00)
--- NOTE | 2019-02-27 09:22 | REP ---
Portable chest x-ray: Single view. History: Evaluate for pulmonary edema and effusions. Comparison chest x-ray: February 25, 2019. Findings: The patient is rotated slightly to the right compared to the prior study. There is a right-sided Dpigwh-[id number]-[id number] catheter again noted with its tip in the expected location of the superior vena cava. Monitoring electrodes are seen. There is a new infiltrate in the right lung base consistent with pneumonia. Interstitial markings are diffusely prominent indicating some degree of pulmonary fibrosis. Heart is not felt to be enlarged. No pleural effusion is seen. Impression: Right lower lobe infiltrate consistent with pneumonia. Electronically Signed by Brian Galvez MD 02/27/2019 09:13 A
[2019-02-27] MEDS: FUROSEMIDE injection 250 MG in D5W 225 ML IV SCH (10:08)
[2019-02-27] MEDS: BRIMONIDINE 0.1% OPHTH SOLN 5 ML OU SCH ×2 (10:44→20:19)
[2019-02-27] MEDS ORDERED: SODIUM CHLORIDE 0.9% INJ 10 ML SYR IV PRN (11:00)
--- NOTE | 2019-02-27 12:14 | IPNPDOC ---
Text Note Date of Service The patient was seen on 02/27/19. NOTE SUBJECTIVE: Early this am he complained of more SOB , he was tachypniec and his oxygen requirement increased. He was also tachycardic and noted to have intermittent SVTs of few minutes duration upto 10 ins maximum. He complained that his abdomen was very tight and uncomfortable. he did have good urine output overnight after albumin infusion. VITAL SIGNS: Please see below. GENERAL APPEARANCE: Laying in bed, appears stated age, cachectic , in mild distress. HEENT: EOMI, PERRLA, neck is supple with no thyromegaly or lymphadenopathy RESPIRATORY: bilateral vesicular breath sounds, decreased breath sounds in the bases bilaterally CARDIOVASCULAR: Somewhat elevated JVD, RRR,no murmurs/rubs/gallops ABDOMEN: Very protuberant, tense, positive fluid shift, unable to palpate organs EXTREMITIES: There is almost 4+ pitting edema in lower extremities bilaterally NEUROLOGICAL: No obvious focal deficits PSYCHIATRIC: normal mood/affect Skin: No rashes , Sacral decubiti. LN: No significant cervical or inguinal lymphadenopathy Labs and Radiology Reviewed ASSESSMENT: This is a 73-year-old male with history of metastatic adenocarcinoma of the GE junction who presents with hypotension and shortness of breath, found to be tachycardic, hypoxic and have lactic acidosis, elevated WBC, NATANAEL and septic shock. Likely source of infection SBP versus pneumonia. Septic Shock -patient noted to have bps in 90s in last admission. He probably has chronic hypotension however unable to rule out infective cause. -Possible sources of infection include pneumonia, bronchitis/ bronchiolitis or spontaneous bacterial peritonitis -sputum has heavy yeast -Zosyn, fluconazole -continue levophed with MAP of 70 to help with diuresis and improvement of renal function. - bedside paracentesis today. Cardiogenic shock ruled out. Echo with EF of about 55% with only grade 1 diastolic dysfunction and mild pulmonary hypertension Minimal pericardial efussion no tamponade. SVT -short episodes seen in monitor -possibly due to tense ascites causing respiratory compromise. Dyspnea - due to tight ascites as well as acidosis - fluid overload from hypoalbuminemeia , renal failure - started on lasix infusion. - more comfortable after paracentesis. NATANAEL with hyperkalemia improving could be hepatorenal syndrome / fluid compression from the ascites/ prerenal/ from infection and shock. patient does not want HD but as much as we can do medically On albumin and lasix. will get paracentesis. neprhology consulted. will follow recommendations. Hyponatremia -Likely secondary to fluid overload possibly 2/2 CHF. -Likely to improve with drainage. 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 Liver Cirrhosis -per CT scan findings -patient & his family denied knowledge of this diagnosis -monitor LFTS Sacral decubitus ulcer -Wound care, air mattress ordered CODE: DNR and DNI VS,Fishbone, I+O VS, Fishbone, I+O Laboratory Tests 02/26/19 18:10 02/27/19 05:56 Vital Signs Date Time Temp Pulse Resp B/P (MAP) Pulse Ox O2 Delivery O2 Flow Rate FiO2 02/27/19 11:46 96 20 89/54 (66) 92 Nasal Cannula 4.0 02/27/19 10:05 35 02/27/19 07:48 100.0 I&O- Last 24 Hours up to 6 AM 02/27/19 06:00 Intake Total 1484.7 ml Output Total 1055 ml Balance 429.7 ml JOSE MANUEL ALFORD MD Feb 27, 2019 12:14
[2019-02-27] MEDS: FLUCONAZOLE 100 MG TAB PO SCH (13:49)
[2019-02-27] MEDS: NOREPINEPHRINE BITARTRATE 8 MG in D5W 492 ML IV SCH ×2 (15:20→15:39)
--- NOTE | 2019-02-27 16:17 | REP ---
Ultrasound-guided paracentesis The procedure was performed under the direct supervision of Dr. Galvez. The procedure was performed in the ICU at the bedside. The risks and benefits of the procedure were explained to the patient and informed consent was obtained. The largest pocket of fluid was localized in the right lower quadrant using ultrasound guidance. The skin was prepped and draped in a sterile fashion. 1% lidocaine was used as a local anesthetic. An 8-Namibian multi side-hole catheter was inserted using trocar technique. 5450 ml of yellow fluid was withdrawn with a sample sent to the lab for analysis. The patient tolerated the procedure well and there were no immediate complications. Electronically Signed by CARLOS Bullard 02/27/2019 03:18 P Electronically Signed by Brian Galvez MD 02/27/2019 04:09 P
--- NOTE | 2019-02-27 16:21 | REP ---
MIDLINE CATHETER INSERTION WITH SITE NOAH The procedure was performed under the direct supervision of Dr. Galvez. The risks and benefits of the procedure were explained to the patient and informed consent was obtained. The procedure was performed in the ICU at the bedside. The right brachial vein was localized using ultrasound guidance. The skin was prepped and draped in a sterile fashion. 1% lidocaine was used as a local anesthetic. Using ultrasound guidance the brachial vein was cannulated and a 0.018 guidewire was inserted. The needle was removed and a 5.5 Bolivian dilator and peel-away sheath was inserted over the guide wire. A 5.5 Bolivian dual lumen catheter was cut to length of 14 cm. The dilator was removed and the catheter was inserted over the guide wire with the tip ending in the SVC. The peel-away sheath was removed and the catheter was flushed with heparinized saline. The catheter was affixed to the skin and a sterile dressing was applied. The patient tolerated the procedure well and there were no immediate complications. Electronically Signed by CARLOS Bullard 02/27/2019 03:57 P Electronically Signed by Brian Galvez MD 02/27/2019 04:11 P
[2019-02-27] MEDS: SODIUM CHLORIDE 0.9% INJ 10 ML SYR IV SCH (16:43)
[2019-02-27 19:52] LABS: CREATININE FOR GFR 1.88 MG/DL (0.70-1.30); GLOMERULAR FILTRATION RATE 37.8 (>42); POTASSIUM SERUM 4.2 MEQ/L (3.5-5.1)
[2019-02-27] MEDS: LATANOPROST 0.005% OPHTH SOLN 2.5 ML OU SCH (20:19)
--- NOTE | 2019-02-27 20:19 | IPN ---
DATE: 02/27/2019 SUBJECTIVE I was called to the patient's bedside by the ICU nurse as the patient was having desaturations this morning and was requiring increasing amounts of supplemental oxygen up to 5 liters by nasal cannula and then switched over to Venturi mask. He was also having intermittent SCTs and was complaining of abdominal distension. His urine output overnight had improved to about 800 mL with combination of albumin and Levophed. This morning the patient was bolused Lasix and started on Lasix drip and arranged for paracentesis. Vital signs: Temperature 100.0, pulse 110, respiratory rate 30, blood pressure 101/65, saturating 91% on 5 liters nasal cannula. Intake yesterday was 1.5 liters. Urine output yesterday was 875, weight in the bed scale today is 72.4 kg. General: The patient was seen lying in bed awake, alert, oriented, appears chronically ill and frail. He was seen after paracentesis when he was no longer in any respiratory distress. His extraocular muscles are intact. Tongue is moist. Neck is supple. Jugular veins are elevated. Cardiac: S1, S2, regular rate and rhythm. 3+ pitting edema in the lower extremities that comes up to the hip and thigh. Respiratory: Tachypnea. Diminished breath sounds at the bases. Scattered rhonchi, but no accessory muscle use at the time of my visit. Abdomen: He is seen status post paracentesis. His ascitic fluid is much less. There is bowel sounds. Genitourinary: Shows Fuentes catheter with urine. Neurologic: Awake, alert, oriented times three. No focal deficit. Skin: No new rashes. Sacral decubitus is not examined. LABS: White count 19, hemoglobin 12.9, platelet 135, sodium 128, potassium 4.5, bicarbonate 22, BUN 55, creatinine 2.1. Paracentesis today removed 5.4 liters. Chest x-ray today showed a right lower lobe infiltrate consistent with pneumonia. INPATIENT MEDICATIONS: Reviewed by myself. I started the patient on Lasix 60 mg IV times 1 and then 5 mg an hour drip. Primary team started him on Diflucan 200 mg by mouth (p.o.) daily. Remainder of medications are unchanged from prior. PROBLEMS 1. Oliguric acute renal failure now converted to nonoliguric renal failure in this patient with decompensated cirrhosis with ascites, probable sepsis, recent acute kidney injury within the past week at other hospital and recent use of nephrotoxic medication. The patient has received aggressive care in the intensive care unit with pressor support and [id number] albumin infusions. He made 800 mL of urine overnight. His hyperkalemia resolved and he has improvement in his renal parameters. However this morning he is a significantly dyspneic and short of breath at rest and decision was made to bolus him with 60 mg of IV Lasix and start him on Lasix drip at 5 mg an hour and also perform a paracentesis at the bedside. I have asked the nurses to continue to titrate his pressor for MAP of 70 to allow for better renal perfusion and we are continuing him on q. 6-hourly albumin today. He does not wish dialysis but would like to proceed with maximum medical therapy. We will get a repeat chemistry this evening. 2. Probable sepsis leukocytosis. Initial lactic acidosis and hypotension requiring pressor support in this patient with immunocompromise and has malignancy with metastasis and has been on chemotherapy. His blood cultures have been drawn. Noted yeast grew in the sputum culture. He is on broad-spectrum empiric antimicrobials as per the primary team. Lung imaging today was suggestive of right-sided pneumonia. He is on renally dosed Zosyn and has also been started on Diflucan. Continues on Levophed. Will followup cultures. Blood cultures so far no growth for 48 hours. 3. Fluid overload. Echocardiogram showed preserved left ventricular ejection fraction. He has significant peripheral edema which is likely related to his ascites and cirrhosis. His renal function has improved over the past 24 hours and given his volume overload and dyspnea I am starting him on Lasix today and he is also being sent for paracentesis for symptomatic relief. 4. Decompensated cirrhosis with recurrent ascites. The patient is reaccumulated ascitic fluid rather quickly. He just had a paracentesis at outside hospital over the weekend and now today had 5.4 liters drained from his belly. He continues on pressor support and albumin for possible type 1 hepatorenal syndrome. 5. Hyperkalemia. It was secondary to renal failure, Bactrim use and potassium supplementation and metabolic acidosis. It has improved and resolved. We will get a repeat potassium level this evening. 6. Hypervolemic hyponatremia likely related to cirrhosis and ascites. He has been started on diuretics.
[2019-02-28] VITALS (83 sets, daily range): BP systolic 80–108; BP diastolic 50–67
[2019-02-28] MEDS: NOREPINEPHRINE BITARTRATE 8 MG in D5W 492 ML IV SCH (02:32)
[2019-02-28] MEDS: PIPERACILLIN/TAZOBACTAM SOD 3.375 GM in D5W MINI-BAG PLUS 50 ML IV SCH ×4 (04:39→22:56)
[2019-02-28] MEDS: SODIUM CHLORIDE 0.9% INJ 10 ML SYR IV SCH ×2 (06:13→18:10)
[2019-02-28 07:22] LABS: HEMATOCRIT 42.6 % (42.0-52.0); HEMOGLOBIN 14.2 g/dl (13.5-17.5); MEAN CORPUSCULAR HEMOGLOBIN 33.2 pg (27.0-33.0); MEAN CORPUSCULAR HGB CONC 33.3 g/dl (32.0-36.5); MEAN CORPUSCULAR VOLUME 99.5 fl (80.0-96.0); PLATELET COUNT, AUTOMATED 118 10^3/uL (150-450); RED BLOOD COUNT 4.28 10^6/uL (4.30-6.10); WHITE BLOOD COUNT 17.2 10^3/uL (4.0-10.0)
[2019-02-28 07:44] LABS: ALBUMIN 3.2 GM/DL (3.2-5.2); BILIRUBIN,TOTAL 1.2 MG/DL (0.2-1.0); CALCIUM LEVEL 7.6 MG/DL (8.8-10.2); CREATININE FOR GFR 1.49 MG/DL (0.70-1.30); GLOMERULAR FILTRATION RATE 49.5 (>42); POTASSIUM SERUM 4.1 MEQ/L (3.5-5.1); TOTAL PROTEIN 5.6 GM/DL (6.4-8.2)
[2019-02-28] MEDS: MORPHINE 15 MG SA TAB PO SCH ×2 (09:30→20:44)
[2019-02-28] MEDS: MULTIVITAMINS/MINERALS THERAP 1 TAB PO SCH (09:31)
[2019-02-28] MEDS: HumaLOG INSULIN (NovoLOG) PER UNIT SC SCH ×4 (09:31→20:43)
[2019-02-28] MEDS: FLUCONAZOLE 100 MG TAB PO SCH (09:31)
[2019-02-28] MEDS: PANTOPRAZOLE 40MG TAB (PROTONIX) PO SCH (09:31)
[2019-02-28] MEDS: BRIMONIDINE 0.1% OPHTH SOLN 5 ML OU SCH ×2 (09:31→20:44)
[2019-02-28] MEDS: FUROSEMIDE injection 250 MG in D5W 225 ML IV SCH (11:51)
[2019-02-28] MEDS: NOREPINEPHRINE BITARTRATE 16 MG in D5W 484 ML IV SCH (14:20)
--- NOTE | 2019-02-28 14:41 | IPN ---
DATE OF SERVICE: 02/28/2019 SUBJECTIVE: Baldomero is seen and examined this morning at the bedside. He has done well overnight, continues on Levophed at 11 mcg and Lasix drip at 5 mg an hour, has made 3.7 liters of urine in the previous 24 hours. His renal function continues to improve and he is continuing on supplemental oxygen at 4 liters. The patient reports a improved appetite and decreased shortness of breath. Vital signs: Temperature 98.2, pulse 113, respiratory rate 22, blood pressure 95/56, saturating 93% on 4 liters nasal cannula. Intake yesterday was 1560, paracentesis removed 5.4 liters, urine output was 3.7 liters, net negative 7.5 liters. Weight in the bed scale today is 65.2 kg. General: The patient is seen sitting in bed, family present at the bedside. He is awake, alert, oriented in no acute respiratory distress, appears chronically ill and frail. Extraocular muscles are intact. Tongue is moist. Neck is supple. Jugular veins are elevated. Cardiac: S1, S2, regular rate and rhythm. 3+ pitting edema in the lower extremities that comes up to about the mid thigh. Respiratory shows tachypnea and diminished breath sounds at the bases but no accessory muscle use nor conversational dyspnea. Abdomen is soft. There is less ascitic fluid filled though some has reaccumulated. There are bowel sounds. Genitourinary: Shows Fuentes catheter with urine. Neurologic: He is awake, alert, oriented times three. No focal deficits. Skin: No new rashes. LABS: Sodium 134, potassium 4.1, bicarbonate 30, BUN 33, creatinine 1.4, hemoglobin 14.2, white count 17. INPATIENT MEDICATIONS: Reviewed by myself. His Levophed drip was double concentrated. Remainder of medications are unchanged from prior. PROBLEMS: 1. Oliguric acute renal failure which converted to an nonoliguric renal failure and is now resolving. His creatinine is down to 1.4 today. He continues in the intensive care unit with pressor support (Levophed at 11 mcg) and is also on a Lasix drip of 5 mg an hour. He is responding very well to diuresis with ongoing improvement and he is responding very well to diuretics with ongoing improvement in renal parameters. Continue to titrate pressor for MAP of 70 to allow for better renal perfusion and continue with Lasix drip at 5 mg an hour. Repeat chemistry in the evening. His initial renal failure was likely secondary to sepsis/hepatorenal syndrome/use of Bactrim. 2. Fluid overload likely related to ascites and cirrhosis status post large volume paracentesis receiving diuresis with Lasix drip has made almost 4 liters of urine in the past 24 hours, renal function is improving. I will continue him on Lasix drip as he is still pressor dependent at this point. 3. Septic shock. He continues on Levophed titrated for a MAP of 70. His blood cultures show no growth. He is continued on renally dosed Zosyn and is getting Diflucan as well for yeast in the sputum. His leukocytosis is downward trending. He remains afebrile and is still requiring a significant amount of pressors. 4. Hypervolemic hyponatremia related to fluid overload/cirrhosis/ascites. He is responding to diuretics and his sodium level was appropriately correcting.
[2019-02-28] MEDS: MIRALAX *UNIT DOSE* 17GM PACKET PO PRN (16:54)
[2019-02-28 18:35] LABS: CALCIUM LEVEL 7.3 MG/DL (8.8-10.2); CREATININE FOR GFR 1.29 MG/DL (0.70-1.30); GLOMERULAR FILTRATION RATE 58.5 (>42); POTASSIUM SERUM 3.9 MEQ/L (3.5-5.1)
[2019-02-28] MEDS: LATANOPROST 0.005% OPHTH SOLN 2.5 ML OU SCH (20:44)
[2019-03-01] VITALS (51 sets, daily range): BP systolic 81–113; BP diastolic 54–70
[2019-03-01 00:08] LABS: BODY FLUID CULTURE Not Indicated (.); LEGIONELLA ANTIGEN URINE Negative (Negative); ORGANISM ID Not indicated. (.); SPECIMEN SOURCE Urine (.); URINE STREP PNEUMONIAE ANTIGEN Negative (Negative)
[2019-03-01] MEDS: SODIUM CHLORIDE 0.9% INJ 10 ML SYR IV SCH ×2 (05:06→17:53)
[2019-03-01] MEDS: PIPERACILLIN/TAZOBACTAM SOD 3.375 GM in D5W MINI-BAG PLUS 50 ML IV SCH ×4 (05:06→21:42)
[2019-03-01 05:32] LABS: HEMATOCRIT 44.5 % (42.0-52.0); HEMOGLOBIN 15.1 g/dl (13.5-17.5); MEAN CORPUSCULAR HEMOGLOBIN 33.2 pg (27.0-33.0); MEAN CORPUSCULAR HGB CONC 33.9 g/dl (32.0-36.5); MEAN CORPUSCULAR VOLUME 97.8 fl (80.0-96.0); PLATELET COUNT, AUTOMATED 116 10^3/uL (150-450); RED BLOOD COUNT 4.55 10^6/uL (4.30-6.10); WHITE BLOOD COUNT 20.2 10^3/uL (4.0-10.0)
[2019-03-01 06:01] LABS: ALBUMIN 2.8 GM/DL (3.2-5.2); ALT/SGPT 14 U/L (12-78); BILIRUBIN,TOTAL 1.3 MG/DL (0.2-1.0); BLOOD UREA NITROGEN 31 MG/DL (7-18); CALCIUM LEVEL 7.7 MG/DL (8.8-10.2); CARBON DIOXIDE LEVEL 27 MEQ/L (21-32); CHLORIDE LEVEL 95 MEQ/L (98-107); CREATININE FOR GFR 1.16 MG/DL (0.70-1.30); GLOMERULAR FILTRATION RATE > 60.0 (>42); GLUCOSE, FASTING 163 MG/DL (70-100); POTASSIUM SERUM 3.8 MEQ/L (3.5-5.1); SODIUM LEVEL 132 MEQ/L (136-145); TOTAL PROTEIN 5.6 GM/DL (6.4-8.2)
--- NOTE | 2019-03-01 07:20 | IPNPDOC ---
Subjective Date Seen The patient was seen on 02/28/19. Subjective Chief Complaint/HPI hypotension Objective Physical Examination General Exam: Positive: Alert, Cooperative, No Acute Distress Eye Exam: Positive: PERRLA ENT Exam: Positive: Mucous membr. moist/pink Chest Exam: Positive: Other (b/l decreased breath sounds ) Heart Exam: Positive: Tachycardic Telemetry: Positive: Tachycardia Abdomen Exam: Positive: Normal bowel sounds Extremity Exam: Positive: Other (mild b/l lower extremities pitting pedal edema. ) Skin Exam: Positive: Nl turgor and temperature Neuro Exam: Positive: Normal Speech Psych Exam: Positive: Mental status NL, Mood NL Assessment /Plan Assessment 73 y/o M with h/o metastatic adenocarcinoma of the GE junction who presents with hypotension and shortness of breath, found to be tachycardic, hypoxic and have lactic acidosis, elevated WBC, NATANAEL and septic shock. Likely source of infection SBP versus pneumonia. Pt was seen and examined at bedside on 02/28/19. Family members at bedside. Pt c/o mild cough. Labs and imaging studies reviewed. Plan Septic Shock improving -patient noted to have bps in 90s in last admission. He probably has chronic hypotension however unable to rule out infective cause. -Possible sources of infection include pneumonia, bronchitis/ bronchiolitis or spontaneous bacterial peritonitis -sputum has heavy yeast -Zosyn, fluconazole -continue levophed with MAP of 70 to help with diuresis and improvement of renal function. - s/p paracentesis Hypoxia could be multifactorial including pneumonia will continue supplemental oxygen, zosyn and fluconazole Cardiogenic shock ruled out. Echo with EF of about 55% with only grade 1 diastolic dysfunction and mild pulmonary hypertension Minimal pericardial effusion no tamponade. SVT -short episodes seen in monitor -possibly due to tense ascites causing respiratory compromise. Dyspnea - due to tight ascites as well as acidosis - fluid overload from hypo albuminemia , renal failure - started on lasix infusion. - more comfortable after paracentesis. NATANAEL with hyperkalemia improving could be hepatorenal syndrome / fluid compression from the ascites/ prerenal/ from infection and shock. patient does not want HD but as much as we can do medically On albumin and lasix. nephrology on board Hyponatremia -Likely secondary to fluid overload possibly 2/2 CHF. -Likely to improve with drainage. 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 Liver Cirrhosis -per CT scan findings -patient & his family denied knowledge of this diagnosis -monitor LFTS Sacral decubitus ulcer -Wound care, air mattress ordered CODE: DNR and DNI Plan/VTE VTE Prophylaxis Ordered?: Yes VS, I&O, 24H, Fishbone Vital Signs/I&O Vital Signs Date Time Temp Pulse Resp B/P (MAP) Pulse Ox O2 Delivery O2 Flow Rate FiO2 02/28/19 18:00 97/53 02/28/19 17:15 112 92 02/28/19 17:00 20 Nasal Cannula 4.0 02/28/19 16:00 98.0 02/27/19 10:05 35 I&O- Last 24 Hours up to 6 AM 02/28/19 06:00 Intake Total 1572.0 ml Output Total 9735 ml Balance -8163.0 ml Laboratory Data 24H LABS Laboratory Tests 2 02/27/19 20:17: Bedside Glucose (Misc Panel) 157H 02/28/19 07:12: Nucleated Red Blood Cells % (auto) 0.0, Anion Gap 10, Glomerular Filtration Rate 49.5, Calcium Level 7.6L, Total Bilirubin 1.2H, Aspartate Amino Transf (AST/SGOT) 11, Alanine Aminotransferase (ALT/SGPT) 15, Alkaline Phosphatase 71, Total Protein 5.6L, Albumin 3.2, Albumin/Globulin Ratio 1.33 02/28/19 12:03: Bedside Glucose (Misc Panel) 165H 02/28/19 17:05: Bedside Glucose (Misc Panel) 157H 02/28/19 18:07: Anion Gap 10, Glomerular Filtration Rate 58.5, Calcium Level 7.3L CBC/BMP Laboratory Tests 02/28/19 07:12 02/28/19 18:07 Microbiology Microbiology 02/26/19 Gram Stain - Final, Complete 02/26/19 Sputum Culture - Final, Complete Yeast Like Organism 02/25/19 Blood Culture - Preliminary, Resulted No Growth after 48 hours. All Specime... 02/25/19 Blood Culture - Preliminary, Resulted No Growth after 72 hours. All specime... SHANA HAYDEN MD Feb 28, 2019 19:09
[2019-03-01] MEDS: MIRALAX *UNIT DOSE* 17GM PACKET PO PRN (07:50)
[2019-03-01] MEDS: MORPHINE 15 MG SA TAB PO SCH ×2 (09:00→20:22)
[2019-03-01] MEDS: FLUCONAZOLE 100 MG TAB PO SCH (09:05)
[2019-03-01] MEDS: HumaLOG INSULIN (NovoLOG) PER UNIT SC SCH ×4 (09:05→20:23)
[2019-03-01] MEDS: MULTIVITAMINS/MINERALS THERAP 1 TAB PO SCH (09:05)
[2019-03-01] MEDS: BRIMONIDINE 0.1% OPHTH SOLN 5 ML OU SCH ×2 (09:05→21:42)
[2019-03-01] MEDS: PANTOPRAZOLE 40MG TAB (PROTONIX) PO SCH (09:05)
[2019-03-01] MEDS ORDERED: FLEET ENEMA PR ONE (09:30)
[2019-03-01] MEDS: NOREPINEPHRINE BITARTRATE 16 MG in D5W 484 ML IV SCH (14:01)
--- NOTE | 2019-03-01 16:13 | IPNPDOC ---
Subjective Date Seen The patient was seen on 03/01/19. Subjective Chief Complaint/HPI hypotension Events since last encounter Pt was seen and examined at bedside Family members at bedside. Pt c/o mild cough. Objective Physical Examination General Exam: Positive: Alert, Cooperative, No Acute Distress Eye Exam: Positive: PERRLA ENT Exam: Positive: Mucous membr. moist/pink Chest Exam: Positive: Other (b/l decreased breath sounds ) Heart Exam: Positive: Tachycardic Telemetry: Positive: Tachycardia Abdomen Exam: Positive: Normal bowel sounds, Soft Extremity Exam: Positive: Other (mild b/l lower extremities pitting pedal edema. ) Skin Exam: Positive: Nl turgor and temperature Neuro Exam: Positive: Normal Speech Psych Exam: Positive: Mental status NL, Mood NL Assessment /Plan Assessment 73 y/o M with h/o metastatic adenocarcinoma of the GE junction who presents with hypotension and shortness of breath, found to be tachycardic, hypoxic and lactic acidosis, elevated WBC, NATANAEL and septic shock. Likely source of infection SBP versus pneumonia. Labs and imaging studies reviewed. Plan 1. Septic Shock improving -patient noted to have bps in 90s in last admission. He probably has chronic hypotension however unable to rule out infective cause. -Possible sources of infection include pneumonia, bronchitis/ bronchiolitis or spontaneous bacterial peritonitis -sputum has heavy yeast -Zosyn, fluconazole -will taper levophed - s/p paracentesis 2 Hypoxia could be multifactorial including pneumonia will continue supplemental oxygen, zosyn and fluconazole 3. Cardiogenic shock ruled out. Echo with EF of about 55% with only grade 1 diastolic dysfunction and mild pulmonary hypertension Minimal pericardial effusion no tamponade. 4. SVT -short episodes seen on monitor 5 Dyspnea resolved was due to tight ascites as well as acidosis s/p paracentesis. 6. NATANAEL with hyperkalemia resolved could be hepatorenal syndrome / fluid compression from the ascites/ prerenal/ from infection and shock. patient does not want HD but as much as we can do medically s/p lasix [facility] nephrology on board 7. Hyponatremia resolved was likely secondary to fluid overload possibly 2/2 CHF. 8. Malignant Ascites -per patient's family ascites is 2/2 malignancy - s/p paracentesis 9. 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 Liver Cirrhosis -per CT scan findings -patient & his family denied knowledge of this diagnosis -monitor LFTS 11. Sacral decubitus ulcer -Wound care, air mattress ordered CODE: DNR and DNI Plan/VTE VTE Prophylaxis Ordered?: Yes VS, I&O, 24H, Fishbone Vital Signs/I&O Vital Signs Date Time Temp Pulse Resp B/P (MAP) Pulse Ox O2 Delivery O2 Flow Rate FiO2 03/01/19 14:01 104 28 101/69 95 Nasal Cannula 4.0 03/01/19 12:00 98.8 02/27/19 10:05 35 I&O- Last 24 Hours up to 6 AM 03/01/19 06:00 Intake Total 1640.5 ml Output Total 2125 ml Balance -484.5 ml Laboratory Data 24H LABS Laboratory Tests 2 02/28/19 17:05: Bedside Glucose (Misc Panel) 157H 02/28/19 18:07: Anion Gap 10, Glomerular Filtration Rate 58.5, Calcium Level 7.3L 02/28/19 20:33: Bedside Glucose (Misc Panel) 93 03/01/19 04:59: Anion Gap 10, Glomerular Filtration Rate > 60.0, Calcium Level 7.7L, Nucleated Red Blood Cells % (auto) 0.0, Total Bilirubin 1.3H, Aspartate Amino Transf (AST/SGOT) 13, Alanine Aminotransferase (ALT/SGPT) 14, Alkaline Phosphatase 127H, Total Protein 5.6L, Albumin 2.8L, Albumin/Globulin Ratio 1.00 03/01/19 11:21: Bedside Glucose (Misc Panel) 170H CBC/BMP Laboratory Tests 02/28/19 18:07 03/01/19 04:59 Microbiology Microbiology 02/26/19 Gram Stain - Final, Complete 02/26/19 Sputum Culture - Final, Complete Yeast Like Organism 02/25/19 Blood Culture - Preliminary, Resulted No Growth after 72 hours. All specime... 02/25/19 Blood Culture - Preliminary, Resulted No Growth after 72 hours. All specime... SHANA HAYDEN MD Mar 01, 2019 16:13
--- NOTE | 2019-03-01 17:58 | IPN ---
DATE: 03/01/2019 Mr. Benz is seen this morning in intensive care unit. His is present on the bedside. His daughter also arrived during my visit. The patient is currently being treated with intravenous Lasix drip and Levophed drip. He was hypotensive and volume overloaded with oliguric acute renal failure. He did respond, and urine output has improved significantly with improved leg edema. This morning it was reported. the patient had multiple runs of supraventricular tachycardia (SVT) and hospitalist had concerns about continuation of Levophed. In the meantime, the patient remains on 4 liters oxygen, and he is tachycardiac but still making urine. He has no fever or chills. His oral intake is minimal. Lower extremity edema has improved significantly. The patient is known to have cirrhosis of liver and also has metastatic esophageal cancer. PHYSICAL EXAMINATION: Temperature 98.8 degrees Fahrenheit, heart rate 180 per minute, respiratory rate 20 per minute, blood pressure about 108/60 mm of mercury, and oxygen saturation 95% on 4 liters oxygen. He is frail and has significant muscle wasting. Head is atraumatic. There is no oral thrush or ulcers. Neck is supple and jugular venous distention (JVD) is not elevated. Heart sounds are tachycardiac and lungs with diminished breath sounds bilaterally. Abdomen soft, protuberant, and nontender. Ascites is noted. Extremities have no cyanosis or clubbing. Lower extremity edema is at least 2+. Neurologically, he is awake and able to answer questions. Today's labs show WBC count 20.2, hemoglobin 15.1, and hematocrit 44.5. Platelets 116. Sodium is 132, potassium 3.8, chloride 95, CO2 of 27, BUN 31, and creatinine 1.16. Calcium is 7.7. Total bilirubin 1.3. Total protein 5.6 and albumin 2.8. PROBLEMS: 1. Acute renal failure. The patient is nonoliguric with good urine output over last 24 hours. He also had large amount of paracentesis done a couple of days ago. His kidney function seems to have improved, and creatinine is down to 1.16 today. I am going to stop intravenous Lasix drip and see how he does at his own. We can use low-dose intermittent Lasix as needed. 2. Hypotension. The patient did have hypertension, and Levophed was started yesterday; however, now he is having runs of supraventricular tachycardia (SVT). I feel that it is too risky to continue with Levophed drip at this point, and we will gradually taper and wean it off. 3. Hyponatremia. His sodium level has fluctuated between 128 and 134 over last 4 days. No significant trend at this point; however, it is likely related to renal failure, hypervolemia, and diuretic use. We will stop the Lasix for now and see how he does. 4. Cirrhosis of liver with ascites. The patient does have significant ascites and had a paracentesis. His prognosis remains poor due to recurrent accumulation of ascites and intravascular volume depletion. He might be a suitable candidate for intravenous (IV) albumin if needed. 5. Leukocytosis and hypotension. The patient remains on Zosyn for possible sepsis. Cultures are negative so far. 6. Metastatic esophageal cancer. The patient has multiple organ problems, and he is not a candidate for any further chemotherapy due to hepatic and liver failure. His long-term prognosis remains poor.
[2019-03-01] MEDS: LATANOPROST 0.005% OPHTH SOLN 2.5 ML OU SCH (21:41)
[2019-03-02] VITALS (43 sets, daily range): BP systolic 76–113; BP diastolic 53–69
[2019-03-02] MEDS: PIPERACILLIN/TAZOBACTAM SOD 3.375 GM in D5W MINI-BAG PLUS 50 ML IV SCH ×4 (04:39→22:18)
[2019-03-02] MEDS: SODIUM CHLORIDE 0.9% INJ 10 ML SYR IV SCH ×2 (04:40→17:15)
[2019-03-02 05:18] LABS: HEMATOCRIT 45.2 % (42.0-52.0); HEMOGLOBIN 14.9 g/dl (13.5-17.5); MEAN CORPUSCULAR HEMOGLOBIN 32.5 pg (27.0-33.0); MEAN CORPUSCULAR VOLUME 98.5 fl (80.0-96.0); PLATELET COUNT, AUTOMATED 102 10^3/uL (150-450); RED BLOOD COUNT 4.59 10^6/uL (4.30-6.10); WHITE BLOOD COUNT 20.4 10^3/uL (4.0-10.0)
[2019-03-02 05:50] LABS: ALBUMIN 2.3 GM/DL (3.2-5.2); ALT/SGPT 15 U/L (12-78); BILIRUBIN,TOTAL 1.3 MG/DL (0.2-1.0); BLOOD UREA NITROGEN 40 MG/DL (7-18); CALCIUM LEVEL 7.9 MG/DL (8.8-10.2); CARBON DIOXIDE LEVEL 25 MEQ/L (21-32); CHLORIDE LEVEL 95 MEQ/L (98-107); CREATININE FOR GFR 1.23 MG/DL (0.70-1.30); GLOMERULAR FILTRATION RATE > 60.0 (>42); GLUCOSE, FASTING 174 MG/DL (70-100); MAGNESIUM LEVEL 1.6 MG/DL (1.8-2.4); POTASSIUM SERUM 3.7 MEQ/L (3.5-5.1); SODIUM LEVEL 131 MEQ/L (136-145); TOTAL PROTEIN 5.5 GM/DL (6.4-8.2)
[2019-03-02] MEDS: MORPHINE 15 MG SA TAB PO SCH ×2 (08:10→20:12)
[2019-03-02] MEDS: FLUCONAZOLE 100 MG TAB PO SCH (08:14)
[2019-03-02] MEDS: MULTIVITAMINS/MINERALS THERAP 1 TAB PO SCH (08:14)
[2019-03-02] MEDS: PANTOPRAZOLE 40MG TAB (PROTONIX) PO SCH (08:14)
[2019-03-02] MEDS: BRIMONIDINE 0.1% OPHTH SOLN 5 ML OU SCH ×2 (08:14→20:12)
[2019-03-02] MEDS ORDERED: NOREPINEPHRINE BITARTRATE 16 MG in D5W 484 ML IV SCH (08:30)
[2019-03-02] MEDS: HumaLOG INSULIN (NovoLOG) PER UNIT SC SCH ×4 (08:31→20:11)
[2019-03-02] MEDS ORDERED: ACETAMINOPHEN TAB 650MG DOSE (2X325MG) PO PRN (11:45)
[2019-03-02] MEDS ORDERED: ONDANSETRON 4MG/2ML VIAL (J2405) IV PRN (11:45)
[2019-03-02] MEDS ORDERED: KETOROLAC 30 MG/ML VIAL (J1885) IV ONE (12:00)
[2019-03-02] MEDS ORDERED: MAG SULF 1GM/100ML (MAG RUN) 1 GM in IV 1 EA IV ONE (13:00)
[2019-03-02] MEDS: NOREPINEPHRINE BITARTRATE 16 MG in D5W 484 ML IV SCH (15:17)
--- NOTE | 2019-03-02 18:17 | IPNPDOC ---
Subjective Date Seen The patient was seen on 03/02/19. Subjective Chief Complaint/HPI hypotension Events since last encounter Pt remained on Levophed Pt c/o mild abdominal discomfort. Over the night pt had one another episode of non sustained VTach and multiple episode of sinus tachycardia Objective Physical Examination General Exam: Positive: Alert, Cooperative, No Acute Distress Eye Exam: Positive: PERRLA ENT Exam: Positive: Mucous membr. moist/pink Chest Exam: Positive: Other (b/l decreased breath sounds ) Heart Exam: Positive: Tachycardic Telemetry: Positive: Tachycardia Abdomen Exam: Positive: Normal bowel sounds, Soft Extremity Exam: Positive: Other (mild b/l lower extremities pitting pedal edema. ) Skin Exam: Positive: Nl turgor and temperature Neuro Exam: Positive: Normal Speech Psych Exam: Positive: Mental status NL, Mood NL Assessment /Plan Assessment 73 y/o M with h/o metastatic adenocarcinoma of the GE junction who presents with hypotension and shortness of breath, found to be tachycardic, hypoxic and lactic acidosis, elevated WBC, NATANAEL and septic shock. Likely source of infection SBP versus pneumonia. Labs and imaging studies reviewed. Plan 1. Septic Shock -patient noted to have bps in 90s in last admission. He probably has chronic hypotension however unable to rule out infective cause. -Possible sources of infection include pneumonia, bronchitis/ bronchiolitis or spontaneous bacterial peritonitis -sputum has heavy yeast -Zosyn, fluconazole - Not able to taper levophed - s/p paracentesis 2 Hypoxia could be multifactorial including pneumonia will continue supplemental oxygen, zosyn and fluconazole 3. Cardiogenic shock ruled out. Echo with EF of about 55% with only grade 1 diastolic dysfunction and mild pulmonary hypertension Minimal pericardial effusion no tamponade. 4. SVT -short multiple episodes seen on monitor 5 Dyspnea resolved was due to tight ascites as well as acidosis s/p paracentesis. 6. NATANAEL with hyperkalemia resolved could be hepatorenal syndrome / fluid compression from the ascites/ prerenal/ from infection and shock. patient does not want HD but as much as we can do medically s/p lasix [facility] nephrology on board 7. Hyponatremia resolved was likely secondary to fluid overload possibly 2/2 CHF. 8. Malignant Ascites -per patient's family ascites is 2/2 malignancy - s/p paracentesis 9. 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 Liver Cirrhosis -per CT scan findings -patient & his family denied knowledge of this diagnosis -monitor LFTS 11. Sacral decubitus ulcer -Wound care, air mattress ordered We discussed with patient, and his daughter about goals of care in view of frequent episode of VTach and persistent hypotension on levophed. will f/u with palliative care consultation CODE: DNR and DNI Plan/VTE VTE Prophylaxis Ordered?: Yes VS, I&O, 24H, Fishbone Vital Signs/I&O Vital Signs Date Time Temp Pulse Resp B/P (MAP) Pulse Ox O2 Delivery O2 Flow Rate FiO2 03/02/19 16:00 97.6 03/02/19 16:00 109 24 85/53 (64) 94 Nasal Cannula 4.0 02/27/19 10:05 35 I&O- Last 24 Hours up to 6 AM 03/02/19 06:00 Intake Total 1273.5 ml Output Total 1115 ml Balance 158.5 ml Laboratory Data 24H LABS Laboratory Tests 2 03/01/19 20:01: Bedside Glucose (Misc Panel) 157H 03/02/19 04:57: Nucleated Red Blood Cells % (auto) 0.0, Anion Gap 11, Glomerular Filtration Rate > 60.0, Calcium Level 7.9L, Magnesium Level 1.6L, Total Bilirubin 1.3H, As partate Amino Transf (AST/SGOT) 12, Alanine Aminotransferase (ALT/SGPT) 15, Alkaline Phosphatase 101, Total Protein 5.5L, Albumin 2.3L, Albumin/Globulin Ratio 0.72L 03/02/19 08:24: Bedside Glucose (Misc Panel) 158H 03/02/19 11:20: Bedside Glucose (Misc Panel) 132H 03/02/19 17:10: Bedside Glucose (Misc Panel) 190H CBC/BMP Laboratory Tests 03/02/19 04:57 Microbiology Microbiology 02/26/19 Gram Stain - Final, Complete 02/26/19 Sputum Culture - Final, Complete Yeast Like Organism 02/25/19 Blood Culture - Preliminary, Resulted No Growth after 72 hours. All specime... 02/25/19 Blood Culture - Final, Complete NO GROWTH AFTER 5 DAYS SHANA HAYDEN MD Mar 02, 2019 18:17
[2019-03-02] MEDS: LATANOPROST 0.005% OPHTH SOLN 2.5 ML OU SCH (20:12)
[2019-03-02] MEDS ORDERED: MORPHINE 2 MG/ML 1ML VIAL (J2270) IV ONE (22:15)
[2019-03-02] MEDS: DOCUSATE SODIUM 100 MG CAP PO PRN (22:18)
--- NOTE | 2019-03-02 22:22 | IPN ---
DATE: 03/02/2019 Mr. Benz is seen this morning on his bedside. His daughter is present in the room. The patient feels about the same but does report some back pain. He is not very comfortable in the bed. We stop his IV Lasix drip yesterday and trying to wean off his Levophed; however, he is still on it due to hypotension. The patient denies any nausea or vomiting. Yesterday, he had some episodes of SVT due to which we are trying to wean off the Levophed. He has history of cirrhosis with ascites for which he had a paracentesis yesterday. The patient also has history of metastatic esophageal cancer. PHYSICAL EXAMINATION: Temperature 98.3 degrees Fahrenheit, heart rate 120 per minute and respiratory rate 24 per minute. Blood pressure 96/67 mmHg and oxygen saturation 90. His head is atraumatic. Neck: Supple and JVD not abnormally elevated. His heart sounds are irregular and tachycardiac. Lungs with diminished breath sounds at bases. Abdomen: Soft and mildly distended with ascites. Extremities: Have no cyanosis or clubbing. Lower extremity edema is 1+. Neurologically, he is awake and able to answer questions. LABORATORY DATA: WBC count is 20.4, hemoglobin 14.9 and hematocrit 45.2. Sodium 131, potassium 3.7, CO2 of 25, BUN 40 and creatinine 1.23. Glucose 174 and calcium 7.9. Magnesium level is 1.6. PROBLEMS: 1. Acute renal failure. Kidney function is about the same for last 2 or 3 days. He did have increased urine output with IV Lasix drip. However, Lasix drip was stopped yesterday due to persistent hypotension and need for pressors. At present, we will continue to watch and use diuretic as needed. 2. Hypotension, etiology is uncertain. The patient remains on Zosyn for possible sepsis. He had runs of SVT with Levophed which is being weaned off. However, he is still on the Levophed. His prognosis is guarded in view of metastatic cancer and cirrhosis of liver and other comorbid conditions. The patient has DO NOT RESUSCITATE status. However he wishes to continue with acute care. 3. Hyponatremia. Slight worsening, but overall no significant international exchange coordinator the last few days. At present, we will continue to watch without any intervention. He is not likely to respond to diuretic. 4. Hypomagnesemia. I would recommend to replace his magnesium which might help with his cardiac arrhythmias.
[2019-03-03] VITALS (62 sets, daily range): BP systolic 63–110; BP diastolic 44–79
[2019-03-03] MEDS ORDERED: NS 250 ML IV ONE (01:45)
[2019-03-03] MEDS: PIPERACILLIN/TAZOBACTAM SOD 3.375 GM in D5W MINI-BAG PLUS 50 ML IV SCH ×2 (04:41→11:15)
[2019-03-03] MEDS: SODIUM CHLORIDE 0.9% INJ 10 ML SYR IV SCH (05:49)
[2019-03-03] MEDS: HumaLOG INSULIN (NovoLOG) PER UNIT SC SCH (07:30)
[2019-03-03 08:07] LABS: HEMATOCRIT 48.1 % (42.0-52.0); HEMOGLOBIN 16.4 g/dl (13.5-17.5); MEAN CORPUSCULAR HEMOGLOBIN 33.1 pg (27.0-33.0); MEAN CORPUSCULAR HGB CONC 34.1 g/dl (32.0-36.5); MEAN CORPUSCULAR VOLUME 97.2 fl (80.0-96.0); PLATELET COUNT, AUTOMATED 113 10^3/uL (150-450); RED BLOOD COUNT 4.95 10^6/uL (4.30-6.10); WHITE BLOOD COUNT 25.6 10^3/uL (4.0-10.0)
[2019-03-03] MEDS: MULTIVITAMINS/MINERALS THERAP 1 TAB PO SCH (08:48)
[2019-03-03] MEDS: MORPHINE 15 MG SA TAB PO SCH ×2 (08:48→21:25)
[2019-03-03] MEDS: BRIMONIDINE 0.1% OPHTH SOLN 5 ML OU SCH ×2 (08:48→21:26)
[2019-03-03] MEDS: FLUCONAZOLE 100 MG TAB PO SCH (08:48)
[2019-03-03] MEDS: PANTOPRAZOLE 40MG TAB (PROTONIX) PO SCH (08:48)
[2019-03-03 10:12] LABS: ALBUMIN 2.5 GM/DL (3.2-5.2); BILIRUBIN,TOTAL 1.6 MG/DL (0.2-1.0); CREATININE FOR GFR 2.36 MG/DL (0.70-1.30); GLOMERULAR FILTRATION RATE 29.1 (>42); POTASSIUM SERUM 4.2 MEQ/L (3.5-5.1)
[2019-03-03 10:26] LABS: CORTISOL AM 51.3 UG/DL (4.3-22.4)
[2019-03-03] MEDS: KETOROLAC 30 MG/ML VIAL (J1885) IV PRN ×2 (13:51→21:24)
[2019-03-03] MEDS: MORPHINE 2 MG/ML 1ML VIAL (J2270) IV PRN ×3 (14:27→19:52)
--- NOTE | 2019-03-03 16:42 | IPNPDOC ---
Subjective Date Seen The patient was seen on 03/03/19. Subjective Chief Complaint/HPI generalized weakness Events since last encounter Pt was seen and examined at bedside. Family members at bedside. Pt c/o generalized weakness Objective Physical Examination General Exam: Positive: Alert, Cooperative, No Acute Distress ENT Exam: Positive: Mucous membr. moist/pink Chest Exam: Positive: Other (b/l decreased breath sounds ) Heart Exam: Positive: Tachycardic Telemetry: Positive: Tachycardia Abdomen Exam: Positive: Normal bowel sounds, Soft Extremity Exam: Positive: Other (b/l lower extremities pitting pedal edema ) Skin Exam: Positive: Nl turgor and temperature Neuro Exam: Positive: Normal Speech Psych Exam: Positive: Mental status NL, Mood NL Assessment /Plan Assessment 73 y/o M with h/o metastatic adenocarcinoma of the GE junction who presents with hypotension and shortness of breath, found to be tachycardic, hypoxic and lactic acidosis, elevated WBC, NATANAEL and septic shock. Likely source of infection was pneumonia. There was no tenderness. Pt remained afebrile. Pt was persistently hypotensive while he was on levophed. Today his renal function started to deteriorate and there was decreased urine output. Pt continued to have SVTs and intermittent episodes of VTch. Pt never wanted to kept alive on machines and did not want to go HD. In view of multiple comorbidities including metastatic adenocarcinoma pt opted for comfort care measures. Plan 1. will continue comfort care iv morphine prn for pain. Plan/VTE VTE Prophylaxis Ordered?: Yes VS, I&O, 24H, Fishbone Vital Signs/I&O Vital Signs Date Time Temp Pulse Resp B/P (MAP) Pulse Ox O2 Delivery O2 Flow Rate FiO2 03/03/19 14:40 16 03/03/19 12:15 160 83/57 (66) 96 Nasal Cannula 4.0 03/03/19 07:42 99.3 02/27/19 10:05 35 I&O- Last 24 Hours up to 6 AM 03/03/19 06:00 Intake Total 917.5 ml Output Total 270 ml Balance 647.5 ml Laboratory Data 24H LABS Laboratory Tests 2 03/02/19 17:10: Bedside Glucose (Misc Panel) 190H 03/02/19 20:10: Bedside Glucose (Misc Panel) 118H 03/03/19 07:42: Nucleated Red Blood Cells % (auto) 0.0, Anion Gap 16, Glomerular Filtration Rate 29.1L, Calcium Level 8.0L, Total Bilirubin 1.6H, Aspartate Amino Transf (AST/SGOT) 24, Alanine Aminotransferase (ALT/SGPT) 17, Alkaline Phosphatase 117, Total Protein 6.0L, Albumin 2.5L, Albumin/Globulin Ratio 0.71L, Cortisol AM Sample 51.3H 03/03/19 08:46: Bedside Glucose (Misc Panel) 177H 03/03/19 11:21: Bedside Glucose (Misc Panel) 173H CBC/BMP Laboratory Tests 03/03/19 07:42 Microbiology Microbiology 02/26/19 Gram Stain - Final, Complete 02/26/19 Sputum Culture - Final, Complete Yeast Like Organism 02/25/19 Blood Culture - Final, Complete NO GROWTH AFTER 5 DAYS 02/25/19 Blood Culture - Final, Complete NO GROWTH AFTER 5 DAYS SHANA HAYDEN MD Mar 03, 2019 16:42
[2019-03-03] MEDS: LORazepam 2 MG/ML VIAL (J2060) IV PRN ×2 (18:50→22:32)
--- NOTE | 2019-03-03 18:54 | IPN ---
DATE: 03/03/2019 Mr. Benz is seen this morning on his bedside in intensive care unit. He remains on low-dose Levophed due to low blood pressure. His urine output is almost minimal now. The patient complains of increasing abdominal distension and poor appetite. On physical exam, heart rate is in 160s and respiratory rate 16 per minute. Blood pressure is about 91/60 mmHg and oxygen saturation 96% on 4 liters oxygen. Intake and output records from last 24 hours showed total intake 721 and output only 425 ml This morning urine output is minimal. His head is atraumatic. Neck is supple and without JVD or thyroid enlargement. Heart sounds are tachycardiac and lungs with diminished breath sounds at bases. Abdomen is distended with ascites and minimal tenderness. Bowel sounds are hypoactive. Extremities have no cyanosis or clubbing. Today's labs show WBC count 25.6, hemoglobin 16.4 and hematocrit 48.1. Sodium 129, potassium 4.2, CO2 22, BUN 56 and creatinine 2.36. Glucose 161 and calcium 8.0. Total protein is 6.0 and albumin 2.5. Cortisol is 51.3. PROBLEMS: 1. Oliguric acute renal failure, most likely hepatorenal syndrome. The patient has large amount of ascites once again. In view of his multiorgan problems, including metastatic esophageal cancer and cirrhosis of liver, I feel that aggressive care is less likely to help. The patient is anticipating meeting with the palliative care team today. I have encouraged him to consider comfort measures. We will wait for his final decision. 2. Hyponatremia. This is related to acute renal and hepatic failure. Gradually his sodium level is worsening and he is not likely to respond to diuretics. Blood pressure is low and he is quite tachycardiac. His hemoglobin has increased, which is reflective of intravascular volume depletion. At this point, we will wait for meeting with the palliative care team. 3. Hepatic failure with recurrent ascites. Ascites has worsened once again. He had a paracentesis done just on Sunday. I would not recommend paracentesis as it is likely to worsen his volume status and blood pressure again. He is already on low-dose Levophed. If we keep giving him IV fluid, that will likely increase his ascites again. Overall, his prognosis remains poor and palliative care is appropriate. The patient already has a DO NOT RESUSCITATE status.
[2019-03-03] MEDS ORDERED: LORazepam 2 MG/ML VIAL (J2060) As Ordered ONE (22:14)
== END 2019-03-04 00:45 | disposition expired | DRG 871 ==
LOC: M ED 15:04 → M ED INP 19:05 → M ICU 22:14 → M MSPAV 03-03 17:14
PROVIDERS: ADMIT Internal Medicine; ATTEND Internal Medicine
PROC: 0W9G30Z Drainage of Peritoneal Cavity with Drainage Device, Percutaneous Approach (ICD-10-PCS; principal; 2019-02-27 09:00)
DX: A41.9 Sepsis, unspecified organism (principal); R65.21 Severe sepsis with septic shock; J18.9 Pneumonia, unspecified organism; K76.7 Hepatorenal syndrome; E87.1 Hypo-osmolality and hyponatremia; N17.9 Acute kidney failure, unspecified; E87.2 Acidosis; C16.0 Malignant neoplasm of cardia; C78.00 Secondary malignant neoplasm of unspecified lung; C79.51 Secondary malignant neoplasm of bone; C79.89 Secondary malignant neoplasm of other specified sites; R18.0 Malignant ascites; E87.5 Hyperkalemia; K74.60 Unspecified cirrhosis of liver; L89.159 Pressure ulcer of sacral region, unspecified stage; Z79.899 Other long term (current) drug therapy; Z66 Do not resuscitate; Z96.641 Presence of right artificial hip joint; Z96.642 Presence of left artificial hip joint; H40.9 Unspecified glaucoma; L40.50 Arthropathic psoriasis, unspecified; E78.5 Hyperlipidemia, unspecified; E83.42 Hypomagnesemia; K72.90 Hepatic failure, unspecified without coma

== ENCOUNTER → 2019-02-25 | Outpatient (CLI) | payer MEDICARE, OTHER, BC ==
[~2019-02-25] MED LIST changes: +ALDA25TA2 PO; +CALC600T60 PO; +CEFD300CAP PO; +DOCU240C9 PO; +FURO20TA2 PO; +HYDR-3713 PO; +HYDR-4571 PO; +MIRA3350 PO; +MORP-69 PO; +MULTCAP PO; +OXYC-517 PO; +PANT40TA3 PO; +POTA1TAB23 PO; +SULF1TAB93 PO; +XALA0.007 OU
[2019-02-25 14:05] VITALS: BP 90/60
== END ==
LOC: M IRPRO 13:13
DX: R18.8 Other ascites (principal); Z53.8 Procedure and treatment not carried out for other reasons